=== PATIENT | male | born 1950 | race Caucasian/White ===

== ENCOUNTER 2018-08-31 16:10 | Inpatient (IN) ==
[2018-08-31] MEDS ORDERED: CARDIZEM IV ONE ×2 (16:25→19:07)
[2018-08-31 16:40] LABS: BASO# 0.01 X1000 (0.0-0.2); HEMATOCRIT 44.5 % (42.0-52.0); HEMOGLOBIN 15.8 g/dL (14.0-18.0); IMM GRAN# 0.08 X1000 (0.0-0.04); IMM GRAN% 0.4 % (0.0-0.5); LYMPH# 0.74 X1000 (1.2-3.4); LYMPH% 3.3 % (20.5-51.1); MCH 33.3 PG (27-31); MCHC 35.5 g/dL (33-37); MCV 93.9 FL (81-99); MONO# 2.14 X1000 (0.11-0.59); MONO% 9.7 % (1.7-9.3); MPV 9.5 FL (7.4-10.4); NEUT# 19.15 X1000 (1.4-6.5); NEUT% 86.6 % (42.2-75.2); PLT 189 X1000 (130-400); RBC 4.74 XMIL (4.7-6.1); RDW 12.3 % (11.5-14.5); WBC 22.12 X1000 (4.8-10.8)
[2018-08-31 16:55] LABS: AGAP 18; ALBUMIN 3.9 g/dL (3.5-5.0); ALKALINE PHOSPHATASE 78 U/L (32-122); BUN 11 mg/dL (8-22); CALCIUM 8.5 mg/dL (8.8-10.2); CHLORIDE 97 mmol/L (98-107); COSMO 276; ESTIMATED GFR > 60; GLUCOSE 284 mg/dL (70-104); GOT 9 U/L (10-34); GPT 16 U/L (10-44); POTASSIUM 3.6 mmol/L (3.5-5.1); SODIUM 133 mmol/L (136-145); TCO2 18 mmol/L (25-35); TOTAL PROTEIN 7.1 g/dL (6.3-8.3)
[2018-08-31] MEDS ORDERED: CARDIZEM ONE (18:55)
[2018-08-31] MEDS: CARDIZEM PO ONE ×2 (18:56→19:00)
[2018-08-31] MEDS ORDERED: ROCEPHIN IV ONE (18:58)
[2018-08-31] MEDS ORDERED: NS 1,000 ML IV ONE ×4 (18:58→23:33)
[2018-08-31] MEDS ORDERED: CARDIZEM 125 MG/D5W 125 MG/125 ML IVPB IV SCH (19:00)
[2018-08-31] MEDS ORDERED: NS 50 ML ONE (19:15)
--- NOTE | 2018-08-31 19:15 | Diag Imaging Result Doc PS360 ---
CHEST-1 VIEW - 08/31/2018 INDICATION: N/V/D palpitation COMPARISON: None FINDINGS: The lungs are normally expanded and clear. Heart size and mediastinal contours are normal. No pneumothorax or pleural effusion. IMPRESSION: Negative exam. Electronically signed by Lloyd Matamoros 08/31/2018 7:13 PM
[2018-08-31 19:27] LABS: INR 1.17; PROTIME 15.5 Seconds (11.0-16.0)
[2018-08-31] MEDS ORDERED: ROCEPHIN 1 GM in NS 50 ML IV ONE (19:27)
[2018-08-31 19:28] LABS: PTT 32.4 Seconds (22.3-41.8)
[2018-08-31 19:43] LABS: BILIRUBIN URINE NEGATIVE (NEGATIVE); BLOOD URINE 4+ (NEGATIVE); CLARITY VERY CLOUDY (CLEAR); COLOR YELLOW; KETONE URINE 2+(Moderate) mg/dL (NEGATIVE); LEUKOCYTES URINE 2+ (NEGATIVE); NITRITE URINE NEGATIVE (NEGATIVE); PROTEIN URINE 2+(100 mg/dL) mg/dL (NEGATIVE); UROBILINOGEN URINE NORMAL
[2018-08-31 19:54] LABS: URINE SOURCE CLEAN CATCH
[2018-08-31 19:59] LABS: URINE BACTERIA 2+ /HFP; URINE CAST NONE SEEN /LPF; URINE CRYSTAL NONE SEEN /HPF; URINE EPITHELIAL CELLS <10 /HPF (<10); URINE RBC <10 /HPF (<10); URINE SMALL ROUND CELLS TRANSITIONAL PRESENT; URINE WBC 20-40 /HPF (<10); URINE YEAST NONE SEEN /HPF
[2018-08-31] MEDS ORDERED: NS 1,000 ML ONE (22:11)
[2018-08-31] MEDS ORDERED: LOVENOX 1 MG/KG SUBQ ONE (22:34)
[2018-08-31] MEDS ORDERED: LOVENOX ONE (22:41)
[2018-08-31] MEDS ORDERED: ZOFRAN IV PRN (23:33)
[2018-08-31] MEDS ORDERED: CARDIZEM 125/NS 125 MG/125 ML IVPB IV SCH (23:33)
[2018-09-01] MEDS ORDERED: NS 1,000 ML IV ONE (04:21)
[2018-09-01] MEDS ORDERED: VANCOMYCIN 1 GM/NS 1 GM/250 ML IVPB IV ONE (04:21)
[2018-09-01] MEDS ORDERED: DESITIN OINTMENT TOP ONE (04:52)
[2018-09-01] MEDS ORDERED: ROCEPHIN 1 GM in NS 50 ML IV SCH (07:30)
--- NOTE | 2018-09-01 07:53 | ED EKG INTERP ---
This chart was entered by Tawana Sahni Scribe, acting as scribe for Solange Croft MD. EKG Interpretation - EKG Time of EKG reading by physician:: 16:19 EKG Read and Signed by:: Solange Croft EKG Interpretation (*Must complete 3 of following elements*): Abnormal (st depression, consider subendocardial injury non specific t wave abnormality) Rate: 148 Rhythm: afib with RVR [place]: normal QRS: normal ST Wave: depressed, non-specific ST changes Attestation - Physician/ SHIRLEY Attestation Patient care was provided by Advanced Practice Provider:: No The physician spent face to face time with patient:: Yes Advanced Practice Provider documentation review:: Supervising physician onsite and consulted in the evaluation and care of this patient. The physician did have a face to face encounter with the patient. This chart was documented by the indicated scribe, (Tawana Sahni Scribe) and accurately reflects the services I performed and decisions made by me, Solange Croft MD, as attested by the provider's signature.
--- NOTE | 2018-09-01 07:53 | PROVIDER DOCUMENTATION ---
This chart was entered by Cherelle Gresham Scribe, acting as scribe for Solange Croft MD. HPI-Abdominal Pain/GI Problem - General Source: patient - History of Present Illness-ABD Nature of Presenting Problems: 68 yom presents to ED cc N/V/D for 3 days and palpitations that started today. Pt denies chest pain, SOB, abdominal pain or any urinary symptoms.patient repor venkatesh nausea, vomting and diarrhea. but no abdominal pain was reported. Onset/Duration: reports: 3 days ago Timing: reports: still present, changing over time Activities at Onset: reports: none Exposure to sick contacts?: No Modifying Factors: improves with: nothing <Solange Croft - Last Filed: 08/31/18 19:01> <Vernon Stokes - Last Filed: 08/31/18 22:38> - General Chief Complaint: N/V/D Stated Complaint: N/V/D Time Seen by Provider: 08/31/18 16:14 Allergies/Adverse Reactions: Patient Allergies Allergy/AdvReac Type Severity Reaction Status Date / Time No Known Allergies Allergy Verified 08/31/18 19:46 Home Medications: Home Medication List Medication Instructions Recorded Confirmed Last Taken Type Metformin [Glucophage] 500 mg PO DAILY 08/31/18 08/31/18 Unknown History Metoprolol Tartrate 25 mg PO BID 08/31/18 08/31/18 Unknown History Omeprazole 40 mg PO DAILY 08/31/18 08/31/18 Unknown History Tamsulosin [Flomax] 0.4 mg PO DAILY 08/31/18 08/31/18 Unknown History Review of Systems - Adult - REVIEW OF SYSTEMS - ADULT Constitutional: reports: see HPI. denies: chills, fever, fatique Eyes: reports: no symptoms reported Ears, Nose, Mouth & Throat: reports: no symptoms reported Cardiovascular: reports: see HPI, palpitations. denies: chest pain, syncope Respiratory: reports: see HPI. denies: shortness of breath Gastrointestinal: reports: see HPI, diarrhea, nausea, vomiting. denies: abdominal pain, constipation Genitourinary: reports: see HPI. denies: dysuria, hematuria, urgency Musculoskeletal: reports: no symptoms reported Integumentary: reports: no symptoms reported Neurological: reports: no symptoms reported Psychiatric: reports: no symptoms reported Endocrine: reports: no symptoms reported Hematologic/Lymphatic: reports: no symptoms reported Allergic/Immunologic: reports: no symptoms reported All Other Systems: Reviewed and Negative <Solange Croft - Last Filed: 08/31/18 19:01> Past History - Adult - PAST MEDICAL HISTORY-ADULT Review of Records: reports: Nursing Assessment Review, Medications Reviewed, Social history reviewed & non-contributory. Major Childhood Illnesses: reports: denies history Cardiovascular: reports: denies history Respiratory: reports: denies history Gastrointestinal: reports: denies history Obstetrical/Gynecological: reports: denies history Genitourinary: reports: denies history Musculoskeletal: reports: denies history Neurological: reports: denies history Endocrine/Immune: reports: denies history Other Conditions: reports: denies history - IMMUNIZATION STATUS Childhood Immunizations: See Nurse Assessment Flu Vaccine: See Nurse Assessment - FAMILY HISTORY Family History: reviewed, not pertinent <Solange Croft - Last Filed: 08/31/18 19:01> Physical Exam-General - PHYSICAL EXAM-ADULT Initial Vital Signs Reviewed: Yes - CONSTITUTIONAL General Appearance: appears well, alert. negative: anxious, combative - EYES Eyes: PERRL/EOMI, pink conjunctivae. negative: photophobia - HEAD, EARS, NOSE, MOUTH & THROAT HENMT: normal ENT inspection. negative: angioedema - NECK Neck: non-tender, full range of motion, supple, normal inspection. negative: Brudzinski's sign, carotid bruit - RESPIRATORY Respiratory: chest non-tender, lungs clear, normal breath sounds, no pleuratic chest pain, no respiratory distress, no accessory muscle use. negative: crackles, rales, rhonchi - CARDIOVASCULAR Cardiovascular: normal peripheral pulses, no edema, no gallop, no JVD, no murmur , tachycardia, irregularly irregular. negative: regular rate, rhythm, bradycardia - GASTROINTESTINAL (ABDOMEN) Abdominal Exam: normal bowel sounds, non tender, soft, no organomegaly. negative: rigid, rebound, tenderness - LYMPHATIC Lymphatic: no adenopathy. negative: striations - MUSCULOSKELETAL Back Exam: normal inspection. negative: swelling Extremity: normal range of motion, normal inspection. negative: deformity - SKIN Integumentary: normal color, warm/dry. negative: diaphoresis, jaundice - NEUROLOGIC Neurologic: settlement processor II-XII nml as tested, grossly normal, no motor/sensory deficits. negative: facial droop, focal weakness - PSYCHIATRIC Psych/Mental Status: normal mood/affect, normal thought content, normal thought process, oriented x 3. negative: anxious <Solange Croft - Last Filed: 08/31/18 19:01> Progress - PLAN OF CARE/RESULTS Progress/Plan/Lab Results: Vital Signs - 8 hr 08/31/18 16:13 08/31/18 17:09 Temperature 99.1 F 98.0 F Pulse Rate 150 H 105 H Respiratory Rate 17 20 Blood Pressure 119/099 101/076 O2 Sat by Pulse Oximetry 97 96 Laboratory Results - last 24 hr 08/31/18 08/31/18 08/31/18 16:25 16:25 16:25 WBC 22.12 H RBC 4.74 Hgb 15.8 Hct 44.5 MCV 93.9 MCH 33.3 H MCHC 35.5 RDW Std Deviation 12.3 Plt Count 189 MPV 9.5 Immature Gran % (Auto) 0.4 Neut % (Auto) 86.6 H Lymph % (Auto) 3.3 L [place] % (Auto) 9.7 H Eos % (Auto) 0.0 Baso % (Auto) 0.0 Immature Gran # (Auto) 0.08 H Neut # (Auto) 19.15 H Lymph # (Auto) 0.74 L [place] # (Auto) 2.14 H Eos # (Auto) 0.00 Baso # (Auto) 0.01 Sodium Potassium Chloride Carbon Dioxide Anion Gap BUN Creatinine Estimated GFR/1.73 m2 BUN/Creatinine Ratio Glucose Calculated Osmolality Calcium Total Bilirubin AST ALT Alkaline Phosphatase Creatine Kinase 33 Troponin T < 0.010 Total Protein Albumin Globulin Albumin/Globulin Ratio 08/31/18 16:25 WBC RBC Hgb Hct MCV MCH MCHC RDW Std Deviation Plt Count MPV Immature Gran % (Auto) Neut % (Auto) Lymph % (Auto) [place] % (Auto) Eos % (Auto) Baso % (Auto) Immature Gran # (Auto) Neut # (Auto) Lymph # (Auto) [place] # (Auto) Eos # (Auto) Baso # (Auto) Sodium 133 L Potassium 3.6 Chloride 97 L Carbon Dioxide 18 L Anion Gap 18 BUN 11 Creatinine 1.0 Estimated GFR/1.73 m2 > 60 BUN/Creatinine Ratio 11 Glucose 284 H Calculated Osmolality 276 Calcium 8.5 L Total Bilirubin 2.20 H AST 9 L ALT 16 Alkaline Phosphatase 78 Creatine Kinase Troponin T Total Protein 7.1 Albumin 3.9 Globulin 3.0 Albumin/Globulin Ratio 1.0 Orders Category Date Time Status Cardiac Monitoring DIRECTED Care 08/31/18 17:40 Active IV Insertion ORDERED Care 08/31/18 17:40 Active Notify MD of + Sepsis Screen NOW Care 08/31/18 17:40 Active Notify Physician As Ordered Care 08/31/18 17:40 Active CHEST-1 VIEW [RAD] Stat Exams 08/31/18 17:40 Ordered BLOOD CULTURE [BLDCUL] Stat Lab 08/31/18 17:40 Uncollected CBC WITH DIFF [HEME] Stat Lab 08/31/18 16:25 Completed CK PROFILE [SP CHEM] Stat Lab 08/31/18 16:25 Completed CK PROFILE [SP CHEM] Stat Lab 08/31/18 17:40 Uncollected COMPREHENSIVE METABOLIC PANEL [CHEM] Stat Lab 08/31/18 16:25 Completed LACTATE, PLASMA [CHEM] Q3H Lab 08/31/18 17:45 Uncollected LACTATE, PLASMA [CHEM] Q3H Lab 08/31/18 20:45 Uncollected LACTATE, PLASMA [CHEM] Q3H Lab 08/31/18 23:45 Uncollected PROTIME WITH INR [COAG] Stat Lab 08/31/18 17:40 Uncollected PTT [COAG] Stat Lab 08/31/18 17:40 Uncollected TROPONIN T Stat Lab 08/31/18 16:[address] W/POSS RFLX CULT [URINALYSIS] Stat Lab 08/31/18 17:40 Uncollected Diltiazem [Cardizem] Med 08/31/18 16:25 Discontinued 20 mg IV NOW ONE Oxygen Device Stat Oth 08/31/18 17:40 Active Result Diagrams: 08/31/18 16:25 08/31/18 16:25 <Solange Croft - Last Filed: 08/31/18 19:01> - PLAN OF CARE/RESULTS Progress/Plan/Lab Results: Vital Signs - 8 hr 08/31/18 16:13 08/31/18 17:09 08/31/18 20:37 Temperature 99.1 F 98.0 F 98.6 F Pulse Rate 150 H 105 H 104 H Respiratory Rate 17 20 25 H Blood Pressure 119/099 101/076 130/79 O2 Sat by Pulse Oximetry 97 96 97 08/31/18 20:59 08/31/18 21:42 Temperature 99.9 F H Pulse Rate 110 H 102 H Respiratory Rate 20 26 H Blood Pressure 120/68 131/69 O2 Sat by Pulse Oximetry 95 96 Laboratory Results - last 24 hr 08/31/18 08/31/18 08/31/18 16:25 16:25 16:25 WBC 22.12 H RBC 4.74 Hgb 15.8 Hct 44.5 MCV 93.9 MCH 33.3 H MCHC 35.5 RDW Std Deviation 12.3 Plt Count 189 MPV 9.5 Immature Gran % (Auto) 0.4 Neut % (Auto) 86.6 H Lymph % (Auto) 3.3 L [place] % (Auto) 9.7 H Eos % (Auto) 0.0 Baso % (Auto) 0.0 Immature Gran # (Auto) 0.08 H Neut # (Auto) 19.15 H Lymph # (Auto) 0.74 L [place] # (Auto) 2.14 H Eos # (Auto) 0.00 Baso # (Auto) 0.01 PT INR PTT ([place] FS) Sodium Potassium Chloride Carbon Dioxide Anion Gap BUN Creatinine Estimated GFR/1.73 m2 BUN/Creatinine Ratio Glucose POC Glucose Calculated Osmolality Calcium Total Bilirubin AST ALT Alkaline Phosphatase Creatine Kinase 33 Troponin T < 0.010 Total Protein Albumin Globulin Albumin/Globulin Ratio Plasma Lactate Urine Source Urine Color Urine Clarity Urine pH Ur Specific [place] Urine Protein Urine Ketones Urine Blood Urine Nitrite Urine Bilirubin Urine Urobilinogen Urine Microscopic RBC Urine WBC Urine Microscopic WBC Ur Epithelial Cells Urine Crystals Small Round Cells Urine Bacteria Urine Casts Urine Yeast Urine Glucose 08/31/18 08/31/18 08/31/18 16:25 18:46 18:46 WBC RBC Hgb Hct MCV MCH MCHC RDW Std Deviation Plt Count MPV Immature Gran % (Auto) Neut % (Auto) Lymph % (Auto) [place] % (Auto) Eos % (Auto) Baso % (Auto) Immature Gran # (Auto) Neut # (Auto) Lymph # (Auto) [place] # (Auto) Eos # (Auto) Baso # (Auto) PT 15.5 INR 1.17 PTT ([place] FS) 32.4 Sodium 133 L Potassium 3.6 Chloride 97 L Carbon Dioxide 18 L Anion Gap 18 BUN 11 Creatinine 1.0 Estimated GFR/1.73 m2 > 60 BUN/Creatinine Ratio 11 Glucose 284 H POC Glucose Calculated Osmolality 276 Calcium 8.5 L Total Bilirubin 2.20 H AST 9 L ALT 16 Alkaline Phosphatase 78 Creatine Kinase 38 Troponin T Total Protein 7.1 Albumin 3.9 Globulin 3.0 Albumin/Globulin Ratio 1.0 Plasma Lactate Urine Source Urine Color Urine Clarity Urine pH Ur Specific [place] Urine Protein Urine Ketones Urine Blood Urine Nitrite Urine Bilirubin Urine Urobilinogen Urine Microscopic RBC Urine WBC Urine Microscopic WBC Ur Epithelial Cells Urine Crystals Small Round Cells Urine Bacteria Urine Casts Urine Yeast Urine Glucose 08/31/18 08/31/18 08/31/18 18:46 19:18 20:16 WBC RBC Hgb Hct MCV MCH MCHC RDW Std Deviation Plt Count MPV Immature Gran % (Auto) Neut % (Auto) Lymph % (Auto) [place] % (Auto) Eos % (Auto) Baso % (Auto) Immature Gran # (Auto) Neut # (Auto) Lymph # (Auto) [place] # (Auto) Eos # (Auto) Baso # (Auto) PT INR PTT ([place] FS) Sodium Potassium Chloride Carbon Dioxide Anion Gap BUN Creatinine Estimated GFR/1.73 m2 BUN/Creatinine Ratio Glucose POC Glucose 246 H Calculated Osmolality Calcium Total Bilirubin AST ALT Alkaline Phosphatase Creatine Kinase Troponin T Total Protein Albumin Globulin Albumin/Globulin Ratio Plasma Lactate 2.3 H Urine Source CLEAN CATCH Urine Color YELLOW Urine Clarity VERY CLOUDY A Urine pH 5.0 Ur Specific [place] 1.020 Urine Protein 2+(100 mg/dL) A Urine Ketones 2+(Moderate) A Urine Blood 4+ Urine Nitrite NEGATIVE Urine Bilirubin NEGATIVE Urine Urobilinogen NORMAL Urine Microscopic RBC <10 Urine WBC 2+ A Urine Microscopic WBC 20-40 A Ur Epithelial Cells <10 Urine Crystals NONE SEEN Small Round Cells TRANSITIONAL PRESENT Urine Bacteria 2+ Urine Casts NONE SEEN Urine Yeast NONE SEEN Urine Glucose 3+(500 mg/dL) A 08/31/18 21:23 WBC RBC Hgb Hct MCV MCH MCHC RDW Std Deviation Plt Count MPV Immature Gran % (Auto) Neut % (Auto) Lymph % (Auto) [place] % (Auto) Eos % (Auto) Baso % (Auto) Immature Gran # (Auto) Neut # (Auto) Lymph # (Auto) [place] # (Auto) Eos # (Auto) Baso # (Auto) PT INR PTT ([place] FS) Sodium Potassium Chloride Carbon Dioxide Anion Gap BUN Creatinine Estimated GFR/1.73 m2 BUN/Creatinine Ratio Glucose POC Glucose Calculated Osmolality Calcium Total Bilirubin AST ALT Alkaline Phosphatase Creatine Kinase Troponin T Total Protein Albumin Globulin Albumin/Globulin Ratio Plasma Lactate 2.7 H Urine Source Urine Color Urine Clarity Urine pH Ur Specific [place] Urine Protein Urine Ketones Urine Blood Urine Nitrite Urine Bilirubin Urine Urobilinogen Urine Microscopic RBC Urine WBC Urine Microscopic WBC Ur Epithelial Cells Urine Crystals Small Round Cells Urine Bacteria Urine Casts Urine Yeast Urine Glucose Orders Category Date Time Status Cardiac Monitoring DIRECTED Care 08/31/18 17:40 Active IV Insertion ORDERED Care 08/31/18 17:40 Active Notify MD of + Sepsis Screen NOW Care 08/31/18 17:40 Active Notify MD of + Sepsis Screen NOW Care 08/31/18 20:46 Completed Notify Physician As Ordered Care 08/31/18 17:40 Active CHEST-1 VIEW [RAD] Stat Exams 08/31/18 17:40 Completed BLOOD CULTURE [BLDCUL] Stat Lab 08/31/18 18:46 Received CBC WITH DIFF [HEME] Stat Lab 08/31/18 16:25 Completed CK PROFILE [SP CHEM] Stat Lab 08/31/18 16:25 Completed CK PROFILE [SP CHEM] Stat Lab 08/31/18 18:46 Completed COMPREHENSIVE METABOLIC PANEL [CHEM] Stat Lab 08/31/18 16:25 Completed LACTATE, PLASMA [CHEM] Lab 08/31/18 21:23 Completed LACTATE, PLASMA [CHEM] Q3H Lab 08/31/18 18:46 Completed PROTIME WITH INR [COAG] Stat Lab 08/31/18 18:46 Completed PTT [COAG] Stat Lab 08/31/18 18:46 Completed TROPONIN T Stat Lab 08/31/18 16:[address] W/POSS RFLX CULT [URINALYSIS] Stat Lab 08/31/18 19:18 Completed URINE CULTURE [RM] Routine Lab 08/31/18 19:59 Received 0.9% Sodium Chloride Inj [Ns] 1,000 ml Med 08/31/18 22:11 Discontinued .ROUTE As directed 0.9% Sodium Chloride Inj [Ns] 1,000 ml Med 08/31/18 18:58 Discontinued IV 999 mls/hr 0.9% Sodium Chloride Inj [Ns] 1,000 ml Med 08/31/18 22:16 Active IV 999 mls/hr 0.9% Sodium Chloride Inj [Ns] 50 ml Med 08/31/18 19:15 Discontinued .ROUTE As directed CefTRIAXONE [Rocephin] Med 08/31/18 18:58 Discontinued 1 gm IV NOW ONE CefTRIAXONE [Rocephin] 1 gm Med 08/31/18 19:27 Discontinued 0.9% Sodium Chloride Inj [Ns] 50 ml IV NOW Diltiazem 125 mg/D5w Med 08/31/18 19:00 Active 125 mg in 125 ml IV As Directed mls/hr Diltiazem [Cardizem] Med 08/31/18 16:25 Discontinued 20 mg IV NOW ONE Diltiazem [Cardizem] Med 08/31/18 19:07 Discontinued 20 mg IV NOW ONE Diltiazem [Cardizem] Med 08/31/18 18:56 Discontinued 20 mg PO NOW ONE Diltiazem [Cardizem] Med 08/31/18 18:55 Discontinued 25 mg .ROUTE .STK-MED ONE Oxygen Device Stat Oth 08/31/18 17:40 Active Result Diagrams: 08/31/18 16:25 08/31/18 16:25 - REASSESSMENT Reassessment #1 Time Reassessed: 22:29 (assumed care @ S/O. Pt seen and examined. He has had N/V/D for 3 days. Has not noticed any palpitations. On exam- ireg irereg tachy cardia, Lungs are clear. Abd is soft, NT. Says was told 20 yrs ago had irreg heartbeat, was placed on Toprol) - CONSULTS/PCP/HOSPITALIST Notification #1 *Consult/PCP/Hospitalist*: Anil Time Discussed: 22:37 Consult Disposition: Admit <Vernon Stokes - Last Filed: 08/31/18 22:38> Departure - Departure Date of Disposition Decision: 08/31/18 Time of Disposition Decision: 19:01 Certified Medical Emergency: Emergent - Critical Care Note This patient required my direct & personal management of CC.: No <Solange Croft - Last Filed: 08/31/18 19:01> - Departure Certified Medical Emergency: Emergent - Critical Care Note This patient required my direct & personal management of CC.: Yes Total Time (mins): 35 Critical Care Statement: This patient required my direct personal management to treat or rule out processes, the absence of which, could potentiallly result in sudden, clinically significant life or limb threatening deterioration. <Vernon Stokes - Last Filed: 08/31/18 22:38> - Departure DIAGNOSIS: Atrial fibrillation with RVR, Gastroenteritis Urinary tract infection Qualifiers: Urinary tract infection type: acute cystitis Hematuria presence: with hematuria Qualified Code(s): N30.01 - Acute cystitis with hematuria Disposition: ADMITTED INPATIENT 09 Condition: Stable Referrals and Follow-Ups: None,PCP [Primary Care Provider] - Attestation - Physician/ SHIRLEY Attestation Patient care was provided by Advanced Practice Provider:: No The physician spent face to face time with patient:: Yes Advanced Practice Provider documentation review:: Supervising physician onsite and consulted in the evaluation and care of this patient. The physician did have a face to face encounter with the patient. <Solange Croft - Last Filed: 08/31/18 19:01> - Physician/ SHIRLEY Attestation Patient care was provided by Advanced Practice Provider:: No The physician spent face to face time with patient:: Yes Advanced Practice Provider documentation review:: Supervising physician onsite and consulted in the evaluation and care of this patient. The physician did have a face to face encounter with the patient. <Vernon Stokes - Last Filed: 08/31/18 22:38> This chart was documented by the indicated scribe, (Cherelle Gresham Scribe) and accurately reflects the services I performed and decisions made by me, Solange Croft MD, as attested by the provider's signature.
--- NOTE | 2018-09-01 08:45 | EKG Report ---
Test Performed on : 08/31/2018 4:19:33 PM Test Reason : ER Blood Pressure : / mmHG Vent. Rate : 148 BPM Atrial Rate : 220 BPM P-R Int : 000 ms QRS Dur : 078 ms QT Int : 300 ms P-R-T Axes : 000 -13 -43 degrees QTc Int : 471 ms Atrial fibrillation. with rapid ventricular response. ST depression, consider subendocardial injury Nonspecific T wave abnormality Abnormal ECG No previous ECGs available Unconfirmed Result
[2018-09-01] MEDS ORDERED: LOPRESSOR PO SCH (09:00)
--- NOTE | 2018-09-01 09:09 | HISTORY AND PHYSICAL ---
PRIMARY CARE PHYSICIAN: None currently. CHIEF COMPLAINT: Nausea, vomiting, and diarrhea for 3 days and palpitations that began yesterday. HISTORY OF PRESENTING ILLNESS: This is a 68-year-old male who presented to [facility] ER with complaints of nausea, vomiting, and diarrhea for the last 3 days that progressively worsened and then began having some palpitations yesterday. He states the palpitations have been on and off for quite a while, but that he has ignored them. When he arrived to the emergency room, he had a pulse of 150. We obtained an EKG that showed atrial fibrillation with RVR at 1:48. He was given Cardizem 20 mg IV x1, Lovenox 1 mg/kg subcutaneously x1. He had a white blood cell count of 22.12. His plasma lactate was 2.3. He received 3 L of normal saline. He was given a vancomycin 1 gram IV x1. He states he has not had any further vomiting since arriving. He still feels nauseous and has had multiple diarrhea episodes since arriving to the emergency room. He has been placed on a Cardizem drip and will be admitted to the intensive care unit for further evaluation and treatment, but currently is holding in the emergency room due to non bed availability. PAST MEDICAL HISTORY: Diabetes type 2. PAST SURGICAL HISTORY: Kidney stones. FAMILY HISTORY: Reviewed and noncontributory. SOCIAL HISTORY: He currently lives with family. Denies any tobacco, alcohol or illicit drug use. ALLERGIES: He has no known drug allergies. HOME MEDICATIONS: He takes Glucophage 500 mg p.o. daily and that will be held, metoprolol 25 mg p.o. b.i.d., omeprazole 40 mg p.o. daily, and Flomax 0.4 mg p.o. daily. LABORATORY DATA: Showed a white blood cell count of 22.12, hemoglobin 15.8, hematocrit 44.5, platelets 189,000. PT and INR of 15.5 and 1.17. Sodium 133, potassium 3.6, chloride 97, CO2 18, BUN of 11, creatinine 1, glucose 284, total bilirubin of 2.2 AST was 9, ALT 16. Cardiac enzyme was negative, and initial plasma lactate was 2.3 and 3 hours later it went up to 2.7 and then 6 hours after that it was back to normal at 1.7. Urinalysis was negative except for 2+ bacteria and showed negative nitrites, 2+ white blood cells, 2+ bacteria. Chest x-ray was a negative exam. EKG showed atrial fibrillation with RVR at 148. REVIEW OF SYSTEMS: He denied any fever, had had some chills. Denied body aches. Denied chest pain, but was positive for some intermittent palpitations. Denied cough. Was positive for shortness of breath. Denied abdominal pain. Was positive for nausea, vomiting, diarrhea, and denied any burning or hurting with urination. PHYSICAL EXAMINATION: VITAL SIGNS: On arrival, he had a temperature of 99.1 degrees, pulse 150, respirations 17, blood pressure 119/99, saturating 97% on room air, and currently his heart rate is down to 98, but remains in atrial fibrillation. GENERAL: This is a 68-year-old male who is lying in the bed and answers questions appropriately. HEENT: Normocephalic, atraumatic. Normal ENT inspection. Oropharynx and nares are clear. Eyes: Pupils are equal, round, reactive to light and accommodation. Extraocular movements are intact. NECK: Normal inspection, normal range of motion. LUNGS: Clear to auscultation bilaterally with equal lung expansion and chest wall movement. HEART: With irregular rate and rhythm, but no murmurs, rubs, or gallops noted. ABDOMEN: Soft, nontender. Bowel sounds are hyperactive x4. MUSCULOSKELETAL: He has 5/5 strength x4 extremities. NEUROLOGICAL: The cranial nerves 2 through 12 appear grossly intact. ASSESSMENT: 1. New onset of atrial fibrillation with rapid ventricular response. 2. Nausea, vomiting, and diarrhea. Rule out gastroenteritis versus any other abdominal infection. 3. Leukocytosis. 4. Diabetes type 2. 5. Presumed urinary tract infection. PLAN: He is being admitted to the intensive care unit at [place] on a Cardizem drip. We are going to consult cardiology. We are obtaining a CT of the abdomen and pelvis with p.o. and IV contrast now to rule out any infection versus gastroenteritis. Give him Lovenox 1 mg/kg subcutaneously every 12 hours, Rocephin 1 gram IV every 12 hours, Zofran 8 mg IV every 6 hours p.r.n. Urine culture and blood cultures are pending. We will recheck a CBC and BMP. Further orders after being seen by attending and sap bw consultant. We will add patterned blood sugars with sliding scale insulin. Dictated by SILVINA Alvarado for Kyle Yepez MD Addendum: Patient seen and examined by myself. Agree with SILVINA note. It reflects my assessment and plan. Patient is admitted to hospital for atrial fibrillation with RVR. Patient reported have had that condition many years ago and he was on Toprol XL for years. Cardizem drip has been started in the ER. Also we found out he has a UTI and gram negative bacteriemia so will start Ertapenem 1 gr IV daily while we wait for results of blood culture. Will monitor patient closely in ICU. cc: SILVINA Alvarado MD [facility]
--- NOTE | 2018-09-01 10:18 | Diag Imaging Result Doc PS360 ---
EXAM: CT ABD/PELVIS W/PO AND IV CON - 09/01/2018 HISTORY: N/V/D,Leukocytosis TECHNIQUE: CT abdomen/pelvis with oral and intravenous contrast COMPARISON: None. FINDINGS: There are tiny bilateral pleural effusions, and there is mild atelectasis or infiltrate at the bilateral posterior lung bases. There is an 8 x 5 mm stone in the proximal to mid right ureter. There is substantial right hydronephrosis, with some perinephric edema. There is heterogeneous enhancement of the lower right kidney which is suspicious for nephritis or pyelonephritis. There is a 7 mm nonobstructing stone in mid right kidney. There is a 2.1 x 1.5 cm oval exophytic lesion arising at the posterior lower right kidney. This has relatively homogeneous appearance but is of soft tissue density. The left kidney is unremarkable except for tiny cysts and mild cortical scarring. The prostate is somewhat prominent in size with mass effect on the base the urinary bladder. The urinary bladder welsh appear mildly thickened diffusely. These findings could be long-standing, the possibility of prostatitis in the urinary bladder cystitis cannot be excluded. There are no substantial abnormalities of the liver, adrenal glands, or pancreas identified. Spleen appears upper normal in size. There are no calcified gallstones or pericholecystic inflammation identified. There is no evidence of bowel obstruction. The appendix has oral contrast in the lumen and shows no evidence of inflammation. There is no free air or gas containing abscess identified. There are some lumbar spine degenerative changes noted which are most prominent at L4-5, where there is apparent associated spinal stenosis. IMPRESSION: 8 x 5 mm stone in proximal to mid right ureter, with associated substantial right hydronephrosis. Heterogeneous enhancement of lower right kidney, which suggests nephritis or pyelonephritis. 7 mm nonobstructing stone in right kidney. 2.1 x 1.5 cm oval exophytic solid appearing lesion arising at posterior lower right kidney. This is relatively homogeneous but malignancy cannot be excluded. Enlarged prostate. Thickened urinary bladder welsh. These findings could be long-standing, but prostatitis and/or urinary bladder cystitis cannot be excluded. Lumbar spine degenerative changes noted which are most prominent at L4-5, where there is apparent associated spinal stenosis. This exam was performed using automated exposure control, adjustment of mA or kV according to patient size, and/or use of iterative reconstruction technique. Electronically signed by Cedrick Hayes 09/01/2018 10:16 AM
[2018-09-01] MEDS: FLOMAX PO SCH (10:23)
[2018-09-01] MEDS: LOVENOX SUBQ SCH ×2 (10:24→22:44)
[2018-09-01] MEDS: HUMALOG (PARKWAY) SUBQ SCH ×3 (11:30→22:48)
[2018-09-01] MEDS ORDERED: PRILOSEC ONE (12:05)
[2018-09-01] MEDS: PRILOSEC PO SCH (12:13)
[2018-09-01] MEDS ORDERED: INVANZ 1 GM/NS 1 GM/50 ML IVPB IV SCH (13:00)
--- NOTE | 2018-09-01 13:56 | ECHO REPORT ---
ORDER DATE: 09/01/2018 INTERPRETING PHYSICIAN: Dr. Kiet Chowdhury. ECHOCARDIOGRAPHIC MEASUREMENTS: 1. Interventricular septum 1.3. 2. Left ventricular posterior wall 1.3. 3. Diastolic diameter 4.3. 4. Left atrium 4.1. 5. Aorta 2.5. SUMMARY OF THE 2-DIMENSIONAL IMAGIN. Aortic valve leaflets are trileaflet. 2. Mitral valve was normal. 3. Tricuspid valve was normal. 4. Pulmonic valve was normal. 5. There is left atrial enlargement. 6. Peak velocity across the aortic valve less than 2 m/sec. There is no aortic stenosis. There is mild aortic regurgitation. 7. There is mild tricuspid regurgitation. Peak velocity across the tricuspid valve was 2.5 m/sec. Pulmonary artery systolic pressure of 35 mmHg. 8. Normal left ventricular cavity size. Estimated ejection fraction of 65%. There is mild left ventricular hypertrophy. 9. There is no pericardial effusion or obvious intracardiac mass or thrombus. cc: MD Lilli Laura CRNP
[2018-09-01] MEDS ORDERED: CARDIZEM PO SCH (14:00)
[2018-09-01] MEDS: INVANZ 1 GM/NS 1 GM/50 ML IVPB IV SCH (14:08)
--- NOTE | 2018-09-01 19:21 | CARDIOLOGY CONSULTATION ---
DATE: 09/01/2018 CHIEF COMPLAINT ON PRESENTATION: Nausea, vomiting and diarrhea. HISTORY OF PRESENT ILLNESS: Mr. Hall is a 68-year-old male with a history of diabetes who does not have a primary care physician. He presented for 4 to 5 days of nausea, vomiting and diarrhea. He was found to have a significant urinary tract infection/pyelonephritis as well as nephrolithiasis. He was admitted for further evaluation and was noted to be in atrial fibrillation and initially started on Cardizem drip. He denies any palpitations, chest pain or orthopnea. PAST MEDICAL HISTORY: Significant for type 2 diabetes as well as nephrolithiasis. SOCIAL HISTORY: . No tobacco or alcohol or illicit drug use. FAMILY HISTORY: Significant for hypertension. REVIEW OF SYSTEMS: A 10-system review of systems is negative except for those things mentioned in HPI. PHYSICAL EXAMINATION: Vital Signs: He is afebrile. His heart rate currently is in the 80s to 90s and appears to be atrial fibrillation. Blood pressure 115/70. General: No acute distress. HEENT: Oropharynx is moist, poor dentition. Eye examination was pink conjunctivae. White sclerae. Neck: Examination shows no obvious thyromegaly or thyroid tenderness. Cardiovascular: He sounds to be in an irregularly irregular rhythm. He has no murmurs. No S3. He has no lower extremity edema. No carotid bruits. Chest: Clear bilaterally. No increased work of breathing. Abdomen: Soft, nontender, nondistended. He has no obvious organomegaly. Skin: Warm and dry throughout without any rashes. Neurological: He is moving all extremities well. He has no lateralizing deficits. PERTINENT DATA: His EKG occurring on the at 14:53 shows rate controlled atrial fibrillation. His EKG occurring on the at 1619 shows rapid atrial fibrillation, rate of 148 beats per minute. His CT scan of his abdomen and pelvis was reviewed demonstrating enlarged prostate, suggestion of hydronephrosis on the right. Nephrolithiasis is noted as well and nephritis/pyelonephritis. He has a 2.1 x 1.5 cm solid-appearing lesion on the lower right kidney suggesting possible malignancy. His lab data shows a white count of 22, hematocrit 44, platelet count of 189,000. His INR is 1.17, sodium is 133, potassium 3.6. His CO2 originally was 18 with an anion gap of 18. His T bilirubin was 2.2. His lactate was 2.7. His cardiac enzymes are negative. His urinalysis was reviewed and was significantly dirty. ASSESSMENT: Mr. Hall is a 68-year-old gentleman who presented with what appears to be sepsis secondary to a urinary source/pyelonephritis. He is also noted to be in atrial fibrillation. PLAN: Currently he is rate controlled. I will stop the diltiazem, increase his metoprolol to 50 b.i.d. He is on weight based Lovenox. He needs to be changed to oral Xarelto or Eliquis at the time of discharge, which I have discussed the risks and benefits, and he agreed to proceed with that plan. His echocardiogram shows a preserved ejection fraction of 65%. His thyroids will be checked in the morning. Please contact us so we can be of further assistance. I have made arrangements for him to follow up with me in 1 month. cc: Ezequiel Matthews MD MTDD
[2018-09-01] MEDS: LOPRESSOR PO SCH (22:44)
[2018-09-02] MEDS: PRILOSEC PO SCH (06:37)
[2018-09-02] MEDS: HUMALOG (PARKWAY) SUBQ SCH ×4 (06:39→21:49)
--- NOTE | 2018-09-02 08:28 | PROGRESS NOTE ---
DATE: 09/02/2018 SUBJECTIVE: Patient reports feeling fine. Denies any sensation of palpitations, chest pressure or chest pain. OBJECTIVE: Vital Signs: Temperature 97.8 degrees, heart rate 100, respiratory rate 18, blood pressure 107/65, and O2 saturation 98% on room air. General: This is a 68-year-old male lying in bed in no acute distress. HEENT: Head is normocephalic, atraumatic. Neck: No JVD noted. No carotid bruits. No lymphadenopathy. No thyromegaly. Cardiovascular: S1, S2 heard. Irregularly irregular, but no murmurs, gallops, or rubs noted. Respiratory: Clear bilaterally to auscultation. No work of breathing or using accessory muscles. Abdomen: Soft and nontender to palpation. Bowel sounds present. No organomegaly. Extremities: No clubbing, cyanosis, or edema. Peripheral pulses present in both legs. Neurological: Patient alert and oriented x3. Moves all 4 extremities. LABORATORY DATA: Still pending. ASSESSMENT AND PLAN: 1. New onset atrial fibrillation with rapid ventricular rate. Heart rate is partially controlled. Considering that he is on metoprolol 50 mg p.o. b.i.d. and that the blood pressures is in the range of high 90s and 100s, I prefer to start small doses of Cardizem. In this case, it is going to be 30 mg of Cardizem p.o. q.6 hours. The Cardizem drip has been stopped, and see how this patient does. Clinically, as we mentioned before he is feeling better. 2. Gram negative bacteremia. Patient has gram-negative rods in the blood. The patient has been started on ertapenem 1 g IV q.24 hours. We do not know exactly what bacteria it is. So far, patient does not have any metal or any prostheses or any pacemaker. At this point, we will continue with the same medication until we know the final sensitivity of those blood cultures, and will go from there. 3. Diabetes mellitus type 2. We will continue with sliding scale insulin. Accu-Chek before meals and also at bedtime. 4. Urinary tract infection. As we mentioned before, urine culture still pending. We will continue with ertapenem. 5. Disposition. We will continue to monitor this patient closely. From a cardiovascular standpoint, I think he is stable. Cardiology has signed off. He recommends heart rate controlled on anticoagulation. At this time, we will continue with Lovenox. He will be discharged with either Xarelto or Eliquis. cc: Kyle Yepez MD
[2018-09-02] MEDS: LOPRESSOR PO SCH ×2 (09:00→21:51)
[2018-09-02] MEDS: FLOMAX PO SCH (09:00)
[2018-09-02 09:21] LABS: BASO# 0.01 X1000 (0.0-0.2); BASO% 0.1 % (0.0-0.8); EOS# 0.01 X1000 (0.0-0.7); EOS% 0.1 % (0.0-10.0); HEMATOCRIT 37.3 % (42.0-52.0); HEMOGLOBIN 12.9 g/dL (14.0-18.0); IMM GRAN# 0.02 X1000 (0.0-0.04); IMM GRAN% 0.2 % (0.0-0.5); LYMPH# 0.67 X1000 (1.2-3.4); LYMPH% 6.5 % (20.5-51.1); MCH 32.7 PG (27-31); MCHC 34.6 g/dL (33-37); MCV 94.7 FL (81-99); MONO# 0.89 X1000 (0.11-0.59); MONO% 8.6 % (1.7-9.3); MPV 10.2 FL (7.4-10.4); NEUT# 8.71 X1000 (1.4-6.5); NEUT% 84.5 % (42.2-75.2); PLT 148 X1000 (130-400); RBC 3.94 XMIL (4.7-6.1); RDW 12.2 % (11.5-14.5); WBC 10.31 X1000 (4.8-10.8)
[2018-09-02 09:22] LABS: POTASSIUM 2.9 mmol/L (3.5-5.1); SODIUM 135 mmol/L (136-145)
[2018-09-02 09:23] LABS: BUN 10 mg/dL (8-22); CHLORIDE 102 mmol/L (98-107); COSMO 273; CREATININE 0.8 mg/dL (0.7-1.2); GLUCOSE 165 mg/dL (70-104); TCO2 19 mmol/L (25-35)
[2018-09-02 09:24] LABS: AGAP 15; CALCIUM 7.8 mg/dL (8.8-10.2)
--- NOTE | 2018-09-02 09:50 | EKG Report ---
Test Performed on : 09/01/2018 2:53:05 PM Test Reason : ER Blood Pressure : / mmHG Vent. Rate : 089 BPM Atrial Rate : 075 BPM P-R Int : 000 ms QRS Dur : 084 ms QT Int : 334 ms P-R-T Axes : 000 012 259 degrees QTc Int : [address] & T wave abnormality, consider lateral ischemia Abnormal ECG When compared with ECG of 31-AUG-2018 16:19, (Unconfirmed) Vent. rate has decreased BY 59 BPM T wave inversion now evident in Lateral leads Confirmed by Flynn Avery MD ([id number]) on 09/04/2018 1:31:37 PM
[2018-09-02] MEDS: LOVENOX SUBQ SCH ×2 (10:22→21:48)
[2018-09-02] MEDS: INVANZ 1 GM/NS 1 GM/50 ML IVPB IV SCH (16:13)
[2018-09-02] MEDS: CARDIZEM PO SCH ×2 (16:13→21:48)
[2018-09-02] MEDS ORDERED: MERREM 1 GM in NS 50 ML IV SCH ×2 (21:00→22:15)
[2018-09-02] MEDS: TYLENOL PO PRN (21:48)
[2018-09-02] MEDS ORDERED: POTASSIUM CHLORIDE IV ONE (22:13)
[2018-09-02] MEDS ORDERED: NS IV ONE (22:13)
[2018-09-03] MEDS ORDERED: NS 50 ML ONE (01:44)
[2018-09-03] MEDS: CARDIZEM PO SCH ×4 (01:52→21:03)
[2018-09-03] MEDS: MERREM 1 GM in NS 50 ML IV SCH ×3 (01:52→18:19)
--- NOTE | 2018-09-03 01:58 | EKG Report ---
Test Performed on : 09/02/2018 11:15:54 PM Test Reason : sweating, sob Blood Pressure : / mmHG Vent. Rate : 111 BPM Atrial Rate : 117 BPM P-R Int : 000 ms QRS Dur : 088 ms QT Int : 314 ms P-R-T Axes : 000 -06 262 degrees QTc Int : 427 ms Atrial fibrillation. with rapid ventricular response. ST & T wave abnormality, consider lateral ischemia Abnormal ECG When compared with ECG of 01-SEP-2018 14:53, (Unconfirmed) No significant change was found Confirmed by Flynn Avery MD ([id number]) on 09/11/2018 4:22:29 AM
[2018-09-03] MEDS ORDERED: ASPIRIN PO STA (06:58)
[2018-09-03] MEDS: PRILOSEC PO SCH (07:09)
--- NOTE | 2018-09-03 08:37 | CONSULTATION ---
DATE OF CONSULTATION: 09/03/2018 CHIEF COMPLAINT: Right ureteral stone, right renal stone, and right renal mass. HISTORY OF PRESENT ILLNESS: Mr. Hall is a 68-year-old with type 2 diabetes and atrial fibrillation, who presented to [facility] on 08/31/2018, complaining of nausea, vomiting, and diarrhea for 3 days that had progressively worsened. The patient was having flank pain, as well as palpitations that he had not addressed. The patient presented to the emergency room and had an elevated heart rate of 150. EKG showed atrial fibrillation with RVR at a rate of 148. The patient was given Cardizem and started on Lovenox. The patient was found to have an elevated white blood cell count at 22k, with a creatinine of 1.0. The patient was given antibiotics, and blood and urine cultures were sent. The patient had admission to the ICU and was started on Cardizem drip, was evaluated by Cardiology, and subsequently his heart rate improved. A CT scan of the Abdomen and Pelvis was performed on 09/01/2018, which showed multiple stones, with an obstructing right ureteral stone measuring 8 x 15 mm leading to severe right hydrouretero- nephrosis, as well as a renal stone, as well as a lower pole renal mass. Urology was consulted today regarding management. The patient has positive blood and urine cultures growing Klebsiella pneumoniae, which is relatively pansensitive. The patient currently states his nausea and vomiting have improved. He states he has minimal back pain. His heart rates have also improved. The patient does have a slightly elevated temperature this morning at 100.4, remains tachycardic at 109 this morning. Patient has had [address] Kaufman. PAST MEDICAL HISTORY: Type 2 diabetes. Atrial fibrillation, Nephrolithiasis. PAST SURGICAL HISTORY: Kidney stone removal by Dr. Kaufman x4. ALLERGIES: No known drug allergies. MEDICATIONS: Glucophage 500 mg p.o. daily. Metoprolol 25 mg p.o. b.i.d. Omeprazole 40 mg p.o. daily. Flomax 0.4 mg. FAMILY HISTORY: Denies family history of malignancy. SOCIAL HISTORY: Denies alcohol, tobacco, or illicit drug use. PHYSICAL EXAMINATION: Vital Signs: Temperature 100.4 degrees, heart rate 109, blood pressure 118/70, oxygen saturation 98% on room air. General: No acute distress. Resting comfortably in bed. Alert and oriented x3. HEENT: Normocephalic, atraumatic. Pupils equal, round, and reactive to light. Mucous membranes moist. Cardiovascular: Evidence of tachycardia, with an irregular rhythm. No evidence of lower extremity edema. Respiratory: Good respiratory effort, without audible wheezing or rales. Abdomen: Soft, nontender, nondistended. No palpable masses. : Uncircumcised phallus. Bilateral testicles without masses or nodularity. No suprapubic tenderness. No CVA tenderness. Rectal: Examination deferred until operating room. Neurologic: Gross motor and sensory intact. Musculoskeletal: Moving all extremities. Skin: No obvious skin lesions or rashes. DIAGNOSTIC DATA: White blood cell count 10.3, hemoglobin 12.9, hematocrit 37.3, platelets 148,000. Sodium 135, potassium 2.9, chloride 102, bicarb 19, BUN 10, creatinine 0.8, glucose 165. Urinalysis from 09/01/2018, 20 to 40 white blood cells, 4+ blood, 2+ bacteria, 3+ glucose. Urine and blood cultures both growing Klebsiella pneumoniae. IMAGING: Obstructing right midureteral stone measuring 8x15mm. Has severe right hydronephrosis to the stone. Has a smaller stone in the right kidney. That is delayed nephrogram on the right side. A 2 cm lower pole renal mass that could be a cyst versus small, homogenous renal mass. ASSESSMENT AND PLAN: Mr. Hall is a 68-year-old with type 2 diabetes, atrial fibrillation, and nephrolithiasis, who presented in consultation regarding right ureteral and right renal stones, as well as a right lower pole renal mass. The patient has had persistent tachycardia, up to 109 and elevated temperature of 100.4 degrees. The patient had a moderate amount of edema and stranding around his right kidney on CT scan. I am concerned the patient is having obstructive uropathy leading to his urinary tract infection with positive blood cultures. I recommended to him to proceed with cystoscopy and right ureteral stent placement to decompress the collecting system. I told him that his stone is quite large and likely would need ureteroscopy versus extracorporeal shockwave lithotripsy for removal. The patient also has a right renal stone. Could consider treatment of his ureteral stone and then doing shockwave on the renal stone. The patient also has a small renal mass that appears to be cystic in origin. We will monitor until he is clinically stabilized. The patient is currently on Lovenox, weight based. We will continue at this time. Likely would have to hold if we performed ureteroscopy and laser removal of stones in the future. The patient discussed the procedure for cystoscopy and right ureteral stent placement. Risks, benefits, and alternatives to procedure were discussed with the patient and the patient elected to proceed. cc: Shankar Garrido MD [facility]
[2018-09-03 08:52] LABS: AGAP 12; BUN 10 mg/dL (8-22); CALCIUM 7.8 mg/dL (8.8-10.2); CHLORIDE 105 mmol/L (98-107); COSMO 281; CREATININE 0.8 mg/dL (0.7-1.2); ESTIMATED GFR > 60; GLUCOSE 170 mg/dL (70-104); POTASSIUM 3.3 mmol/L (3.5-5.1); SODIUM 139 mmol/L (136-145); TCO2 22 mmol/L (25-35)
[2018-09-03] MEDS ORDERED: XYLOCAINE-MPF 2% ONE (08:54)
[2018-09-03] MEDS ORDERED: DIPRIVAN 1% ONE (08:54)
[2018-09-03 09:09] LABS: BASO# 0.01 X1000 (0.0-0.2); BASO% 0.2 % (0.0-0.8); EOS# 0.01 X1000 (0.0-0.7); EOS% 0.2 % (0.0-10.0); HEMATOCRIT 39.8 % (42.0-52.0); HEMOGLOBIN 13.8 g/dL (14.0-18.0); IMM GRAN# 0.02 X1000 (0.0-0.04); IMM GRAN% 0.4 % (0.0-0.5); LYMPH# 0.45 X1000 (1.2-3.4); MCH 32.3 PG (27-31); MCHC 34.7 g/dL (33-37); MCV 93.2 FL (81-99); MONO# 0.56 X1000 (0.11-0.59); MPV 10.7 FL (7.4-10.4); NEUT# 4.57 X1000 (1.4-6.5); NEUT% 81.2 % (42.2-75.2); PLT 148 X1000 (130-400); RBC 4.27 XMIL (4.7-6.1); RDW 12.2 % (11.5-14.5); WBC 5.62 X1000 (4.8-10.8)
[2018-09-03] MEDS ORDERED: ASPIRIN ONE (09:11)
[2018-09-03] MEDS ORDERED: ZOFRAN ONE (09:17)
--- NOTE | 2018-09-03 09:24 | Diag Imaging Result Doc PS360 ---
EXAM: CT HEAD W/O CONTRAST INDICATION: ro cva TECHNIQUE: This exam was performed using automated exposure control, adjustment of mA or kV according to patient size, and/or use of iterative reconstruction technique. COMPARISON: None. FINDINGS: There is minimal patchy low attenuation in the periventricular and subcortical white matter suggesting very mild microangiopathy. There is no definite acute infarct given the limited sensitivity of CT versus MRI. There is no discrete intracranial mass, mass effect, or intracranial hemorrhage. There is mild to moderate paranasal sinus mucosal thickening. Surrounding soft tissues and bony structures are essentially unremarkable, otherwise. IMPRESSION: Very mild chronic appearing white matter changes. No evidence of acute intracranial pathology by CT. Electronically signed by Simone Del Angel 09/03/2018 9:21 AM
[2018-09-03] MEDS ORDERED: FENTANYL ONE ×2 (09:33→09:39)
--- NOTE | 2018-09-03 09:35 | PROGRESS NOTE ---
DATE: 09/03/2018 SUBJECTIVE: No acute events overnight. He denies any chest pain or palpitations. The patient has been evaluated by Urology Department, and the plan is to go to the OR for procedure. OBJECTIVE: Vital Signs: Temperature 100.4 degrees, pulse 109, respiratory rate 20, blood pressure 108/70, oxygen saturation 98 on room air. HEENT: Head normocephalic, no trauma. PERRLA. Neck: Supple. No JVD. No masses. Central trachea. Chest: Clear to auscultation. No wheezing. No rales. Cardiovascular: Irregularly irregular rate and rhythm. Abdomen: Soft, nontender, nondistended. No hepatosplenomegaly. Extremities: No edema, no clubbing, no cyanosis. Neurological examination: The patient is alert and oriented x3. He moves all 4 extremities. LABORATORY: Glucose 149, magnesium 1.9. CK 98. Troponins negative x2. Pending BMP and CBC at this moment. ASSESSMENT AND PLAN: 1. New onset atrial fibrillation with rapid ventricular response. Heart rate is better controlled. It has been mostly in the 90s and 100s, with some episodes in the 90s, 80s and 120s, but he is not having palpitation, shortness of breath or chest pain at this moment. We will continue with the same management. Cardiology Department following this patient. As per the patient, he has been having rhythm problems before, around 20 years ago, but he has not followed this up and he has not been on anticoagulation before. At this moment, we will continue with the same management, but probably we need to switch the Lovenox to either Eliquis or Xarelto if he is not going to get any other procedures, I had a conversation with Dr. Shankar Garrido, who states that probably this patient can get a new procedure either Wednesday or . If that is the case, probably we need to keep this patient on Lovenox twice a day before putting this patient on Eliquis or Xarelto. 2. Klebsiella pneumonia, urinary tract infection and bacteremia. WBC normalized and upon admission was 22.12 and yesterday was 10.3. He had a mild episode of fever today. Blood culture was done on the -. He is going today for surgery, and I will repeat the blood culture again to make sure that the infection is going away. He is getting meropenem, which I will continue for today, but probably he can be switched to levofloxacin, which he can get it intravenously during this hospitalization and then oral at home. 3. Sepsis. Upon admission this patient was tachycardic and he had leukocytosis. Also, he has bacteremia and urinary tract infection. This is getting better. We will continue with same management. 4. Type 2 diabetes. Continue with the same management. Stable. 5. Urinary tract infection in a patient with right ureteral and right renal stones. Also, it looks like he has a renal mass, but probably this is a cyst. Urology Department has been evaluating this patient, and the plan is to proceed with cystoscopy exam and right ureteral stent placement to decompress the collecting system. To remove the stone, probably they will do ureteroscopy versus extracorporeal shockwave lithotripsy for removal. The patient also has a renal stone that could be treated with shock wave. That is the plan for now for this patient's obstructive uropathy. I do believe today only is going to be the cystoscopy exam and the stent placement, and probably removal of one of the stones. We will wait for the surgery to find out. Apparently as per Dr. Garrido, this patient probably will have a new procedure around Wednesday or ; he will let us know. cc: Quinn Kennedy MD
[2018-09-03] MEDS: LOPRESSOR PO SCH ×2 (11:16→21:04)
[2018-09-03] MEDS: FLOMAX PO SCH (11:16)
[2018-09-03] MEDS: HUMALOG SUBQ SCH ×4 (11:21→21:05)
[2018-09-03] MEDS: PYRIDIUM PO PRN ×2 (11:30→21:04)
--- NOTE | 2018-09-03 12:09 | OPERATIVE NOTE ---
PROCEDURE DATE: 09/03/2018 PREOPERATIVE DIAGNOSES: 1. Right hydronephrosis. 2. Right obstructing ureteral stone. 3. Urosepsis. 4. Right renal stone. POSTOPERATIVE DIAGNOSES: 1. Right hydronephrosis. 2. Right obstructing ureteral stone. 3. Urosepsis. 4. Right renal stone. PROCEDURES PERFORMED: 1. Cystoscopy. 2. Right ureteroscopy with lithotripsy. 3. Stone basket extraction. 4. Right retrograde pyelogram. 5. Right 6 x 26 cm ureteral stent placement. SURGEON: Shankar Garrido MD. RELATIONS MGR: None. COMPLICATIONS: None. BLOOD LOSS: 5 mL. SPECIMEN REMOVED: Ureteral stone fragments. DRAINS: 1. A 6 x 26 cm right ureteral stent. 2. A 18-Russian Avila catheter. OPERATIVE FINDINGS: The patient had a normal urethra. No evidence of stricture disease or papillary lesions. On entering to the posterior urethra the patient's prostate was enlarged with trilobar hypertrophy and a moderate-sized median lobe. Once inside the bladder, the entirety of the bladder was inspected with evidence of grade 2 trabeculations, cellules, no evidence any bladder stones or diverticulum. A small amount of sediment was seen throughout the bladder. Both ureteral orifices were visualized, with efflux from the left side. I was able to pass a ZIPwire through the scope, however, was unable to get past the midportion of the ureter. No obvious stones were seen on machine stripper cutter fluoroscopy. Performed ureteroscopy and was able to pass the ureteroscope all the way up into the proximal portion of the mid ureter. A stone was encountered there and was significantly impacted, with tissue overgrowth of the ureteral tissue. I was able to obtain a 365 micron fiber and tried to break the stone into small pieces in order to pass a wire past the stone. Ultimately, I was able to fracture enough of the stone away to get the PTFE wire past the stone up into the collecting system. Due to the tortuosity of the ureter, as well as his enlarged prostate, it was difficult to get direct tip on the stone itself. I was only able to fracture enough to get the wire past it. I was able to extract a few amounts of stone fragments and drop them in the bladder for later retrieval. The patient had evidence of atrial fibrillation and tachycardia. The decision was made to hold off on further stone treatment as we did have a wire past the stone. I performed a right retrograde pyelogram by passing an open-ended ureteral catheter the over the wire, and shot Omnipaque into the collecting system outlining the normal collecting system with severe hydroureteronephrosis. I exchanged the PTFE wire for a ZIPwire, and then placed a 6x26 cm stent. MISTY was performed that showed 30 gram prostate without nodules or asymmetry. No palpable rectal masses. INDICATIONS FOR PROCEDURE: Mr. Hall is a 68-year-old, with a history of nephrolithiasis and type 2 diabetes, who presented to the emergency room on 08/31/2018 complaining of significant pain, nausea, vomiting, and diarrhea. The patient was admitted due to evidence of atrial fibrillation with RVR and was started on Cardizem drip at [facility]. A CT scan was performed on 09/01/2018, which showed a large stone present within the midportion of the right ureter causing severe hydronephrosis proximal to this. The patient also had a smaller stone present in the kidney itself. The patient was transferred to [place] yesterday for evaluation by Urology. The patient has positive blood and urine cultures growing Klebsiella pneumoniae and continues to be in atrial fibrillation. Urology was consulted this morning regarding management of his stone. The patient was evaluated. The recommendation was to proceed with cystoscopy and right ureteral stent placement. Risks, benefits, and alternatives to the procedure were discussed with the patient and the patient elected to proceed. DESCRIPTION OF PROCEDURE: After informed consent was obtained, the patient was brought to the operating room, and placed on the operative room table in the supine position. The patient underwent general anesthesia. The patient received antibiotics on the floor. The patient was prepped and draped in the usual sterile fashion. A preop time-out was performed with all parties in agreement, including anesthesia, surgical, and nursing staff, at which time a 21-Russian cystourethroscope was inserted through the urethra showing normal caliber urethra, no evidence of stricture disease or papillary lesions. On entering the posterior urethra, the patient's prostate was encountered and was not overly long, but did have evidence of obstruction with median lobe present in the base of the bladder that was moderate in size. Both ureteral orifices were visualized, with efflux on the left side. No obvious efflux was seen from the right. There was a significant amount of sediment present in the base of the bladder and throughout. This was irrigated out and drained. The entire bladder was inspected which showed evidence of grade 2 trabeculations as well as several small cellules. No obvious diverticulum, papillary lesions or bladder stones were seen. After complete inspection of the bladder with a 30 and 70-degree lens, open catheter was placed through the scope, flushed of all bubbles and a right retrograde pyelogram was attempted, but could not get the contrast past the mid ureter. Next, a wire was then passed through the scope and the right ureteral orifice was cannulized and a wire was passed easily up into the midportion of the ureter, at which point there was resistance. Attempted to place an open-ended catheter over the wire up into the proximal portion of the mid ureter. However, was not able to get a wire past this. The decision was made to leave the wire in place and to perform right ureteroscopy. I performed ureteroscopy and was able to get up to where the stone was. It was significantly impacted, with tissue overgrowth and inflammation around the stone. I attempted to pass a wire past this which was unable to pass easily. The decision was made to try to fracture the stone in small pieces and pass the wire past this. The patient's anatomy made it difficult to get up to where the stone was, but I was able to fracture enough that I passed the PTFE wire past the stone up into the collecting system. I was able to extract a few of the pieces using a ZeroTip basket and dropped down into the bladder. Due to patient having active atrial fibrillation and urosepsis, the decision was made to abort the procedure at this point and place a ureteral stent. I passed an open-ended catheter over the PTFE wire and shot a retrograde pyelogram to outline the collecting system and ensure that the wire was going into the collecting system itself. At which point, an open-ended catheter was used to exchange the PTFE wire for a ZIPwire. This was back-loaded through the scope and a 6 x 26 cm stent easily passed into the collecting system. Good curl was seen within the collecting system and endoscopically visualized in the bladder. The patient's bladder was drained multiple times and good drainage was seen through and around the stent. The patient's bladder was left full. Then, an 18-Russian Coude catheter was inserted with drainage of light pink irrigant. This was placed to gravity drainage. A digital rectal exam was performed that showed a 30 gram prostate, without nodules or asymmetry, no palpable rectal masses. The patient was awoken and was taken to recovery in stable condition. The patient will be monitored and optimized from his atrial fibrillation and urinary tract infection, and we will discuss treatment options for definitive management of his stone disease. cc: Shankar Garrido MD MTDD
[2018-09-03] MEDS: NORCO-7.5 PO PRN ×2 (13:33→18:56)
[2018-09-03] MEDS: LOVENOX SUBQ SCH ×3 (15:11→22:13)
[2018-09-03] MEDS: PERIDEX MT SCH ×2 (18:55→21:03)
[2018-09-03] MEDS: TYLENOL PO PRN (21:05)
[2018-09-04] MEDS: MERREM 1 GM in NS 50 ML IV SCH ×2 (01:02→11:42)
[2018-09-04] MEDS: CARDIZEM PO SCH ×4 (01:02→21:08)
[2018-09-04] MEDS: NORCO-7.5 PO PRN ×3 (01:02→21:07)
[2018-09-04] MEDS: PRILOSEC PO SCH (06:07)
[2018-09-04] MEDS: HUMALOG SUBQ SCH ×4 (06:37→21:07)
[2018-09-04 06:53] LABS: BASO# 0.03 X1000 (0.0-0.2); BASO% 0.5 % (0.0-0.8); EOS# 0.04 X1000 (0.0-0.7); EOS% 0.6 % (0.0-10.0); HEMATOCRIT 41.2 % (42.0-52.0); HEMOGLOBIN 14.2 g/dL (14.0-18.0); IMM GRAN# 0.09 X1000 (0.0-0.04); IMM GRAN% 1.4 % (0.0-0.5); LYMPH# 0.42 X1000 (1.2-3.4); LYMPH% 6.7 % (20.5-51.1); MCH 32.8 PG (27-31); MCHC 34.5 g/dL (33-37); MCV 95.2 FL (81-99); MONO# 0.55 X1000 (0.11-0.59); MONO% 8.7 % (1.7-9.3); MPV 10.2 FL (7.4-10.4); NEUT# 5.16 X1000 (1.4-6.5); NEUT% 82.1 % (42.2-75.2); PLT 145 X1000 (130-400); RBC 4.33 XMIL (4.7-6.1); RDW 12.4 % (11.5-14.5); WBC 6.29 X1000 (4.8-10.8)
[2018-09-04 07:25] LABS: AGAP 13; BUN 9 mg/dL (8-22); CHLORIDE 100 mmol/L (98-107); COSMO 283; ESTIMATED GFR > 60; GLUCOSE 289 mg/dL (70-104); POTASSIUM 3.2 mmol/L (3.5-5.1); SODIUM 137 mmol/L (136-145); TCO2 24 mmol/L (25-35)
[2018-09-04] MEDS: FLOMAX PO SCH (08:38)
[2018-09-04] MEDS: LOPRESSOR PO SCH ×2 (08:38→21:08)
[2018-09-04] MEDS: PERIDEX MT SCH ×2 (08:38→21:09)
--- NOTE | 2018-09-04 08:41 | PROGRESS NOTE ---
DATE: 09/04/2018 SUBJECTIVE: No acute events overnight. The patient was taken to the operating room yesterday for cystoscopy, right ureteroscopy, laser lithotripsy, and stent placement. The patient had an impacted stone which was difficult to get a stent by and required lasering just to pass a wire through and into the kidney. The patient has had positive blood and urine cultures, growing Klebsiella pneumoniae as well as atrial fibrillation with RVR. The patient's Avila catheter has been placed. He has made good yellow urine. He does have some dysuria around the catheter. Denies any flank pain, nausea, or vomiting. OBJECTIVE: Vital signs: Temperature 98.1 degrees, heart rate 114, blood pressure 112/69, oxygen saturation 96% on room air. General: No acute distress, sitting on side of the bed eating breakfast. Respiratory: Good respiratory effort without audible wheezing or rales. Abdomen: Soft, nontender, nondistended. : No suprapubic tenderness. No CVA tenderness. A urethral catheter in place draining clear yellow urine. LABORATORIES: White blood count 6.3, hemoglobin 14.2, hematocrit 41.1, platelets 145,000. Sodium 137, potassium 3.2, chloride 100, bicarb 24, BUN 9, creatinine 1, glucose 389. ASSESSMENT AND PLAN: Mr. Hall is a 68-year-old with type 2 diabetes, nephrolithiasis, atrial fibrillation, who presented in consultation regarding right ureteral and right renal stones. The patient was taken to the operating room yesterday for cystoscopy, right ureteroscopy, laser lithotripsy and stent placement. The patient had a significantly impacted stone making it difficult to place a stent. Ultimately I was able to get a stent past the obstructing stone. The patient had a low-grade temperature yesterday to 100.4, as well as persistent tachycardia postoperatively, which did improve initially, but has had heart rates in the 110s since then. The patient's heart rate this morning was 114 bpm. The patient denies any pain. Overall, he feels well and is up on the side of his bed eating breakfast. We will plan to remove the catheter this morning. Initially had discussed with the patient proceeding to surgical intervention to remove his stones this week. However, due to his persistent atrial fibrillation and tachycardia, I recommended holding off until this is better controlled and after treating his urinary tract infection with positive blood cultures. Likely, we will plan to perform surgery in several weeks. We will continue on culture specific antibiotics and likely he would need long-term antibiotics for at least 2 weeks. We will continue to monitor. Please call with questions or concerns. cc: Shankar Garrido MD MTDD
[2018-09-04] MEDS: LOVENOX SUBQ SCH ×3 (11:42→23:04)
--- NOTE | 2018-09-04 13:47 | PROGRESS NOTE ---
DATE: 09/04/2018 SUBJECTIVE: The patient is resting comfortably. Has no complaints today. OBJECTIVE: Vital signs: Temperature 98.6 degrees, pulse 101, respirations 20, blood pressure is 120/74, oxygen saturation is 98%. HEENT: Atraumatic, normocephalic. Cardiovascular System: S1, S2. Respiratory system has evidence of good air entry bilaterally. Abdomen is soft, nontender. No masses felt. Extremities: No evidence of edema. Central Nervous System: No obvious focal deficit noted. LABORATORIES: WBC 6.29, hematocrit is 41.1, with a platelet count of 145,000. Sodium is 137, potassium 3.2, chloride 100, bicarbonate 24, BUN 9, creatinine 1.0. ASSESSMENT AND PLAN: 1. New onset atrial fibrillation with rapid ventricular rate. Current heart rate is about 101. Continue rate-controlling agent and the patient is also on anticoagulation, specifically enoxaparin 70 mcg subcutaneously every 12 hours. Cardiology team following. 2. Streptococcal pneumonia, urinary tract infection/bacteremia. Continue current antibiotic regimen. 3. Type 2 diabetes mellitus. Continue blood sugar monitoring, as well as sliding scale insulin. 4. Right ureteral/right renal stones. The patient is status post cystoscopy, right ureteroscopy with lithotripsy, stone basket extraction, as well as a right ureteral stent placement. The patient is being followed by the Urology team. 5. Deep vein thrombosis prophylaxis. The patient is currently on enoxaparin. 6. Gastrointestinal prophylaxis. We will continue proton pump inhibitor. cc: Per Koehler MD
[2018-09-04] MEDS: POTASSIUM CHLORIDE 20 MEQ/SWI 20 MEQ/100 ML IVPB IV SCH ×2 (15:05→16:59)
--- NOTE | 2018-09-04 16:03 | INFECTIOUS DISEASE CONSULT REP ---
DATE: 09/04/2018 CONCLUSION: The patient has a Klebsiella urinary tract infection secondary to right-sided hydronephrosis due to a right ureteral stone. The patient also has an enlarged prostate and thickened bladder wall, which could be due to prostatitis and cystitis respectively. The patient also has an associated Klebsiella bacteremia originating from the kidney. RECOMMENDATIONS: I have discontinued meropenem and placed the patient on Rocephin. He has already had a stent placed in the ureter and he will have further followup with Urology regarding getting rid of the ureteral calculus. PRESENT ILLNESS: The patient had a decrease in his memory and the history was taken partly from him and also from his . He had for 2 weeks diarrhea, vomiting and an irregular heart rate. He was admitted to the hospital. Both his blood and urine are growing Klebsiella and repeat blood cultures are pending. CT scan as mentioned showed a right hydronephrosis due to a right ureteral stone. Also, there was enlargement of the prostate and thickening of the urinary bladder welsh. CBC-WBC 6.29, hgb 14.2, platelets 145K. Both blood and urine cultures are growing klebsiella. PAST MEDICAL HISTORY/REVIEW OF SYSTEMS: Eyes and ears: The patient's vision is okay but he has decreased hearing. Neck: No stiffness. Respiratory: No cough or shortness of breath. Cardiac: No chest pains or palpitations. GI: See present illness. Genitourinary: See present illness. Neurologic: No seizures. No recent loss of motor or sensory function. Integument: No rashes. PREVIOUS HOSPITALIZATIONS AND OPERATIONS: He has had excision of his coccyx. He also has had renal calculi. MEDICAL DISEASES: Positive for diabetes mellitus, renal calculi, atrial fibrillation. INFECTIOUS DISEASE HISTORY: Negative for pneumonia and UTI. FAMILY HISTORY: Positive for diabetes mellitus and cancer. [place]IAL H[place]ORY[place] . He does not have any pets. He does not smoke cigarettes or abuse drugs, but he does occasionally drink beer. ALLERGIES: He has no known drug allergies. MEDICATIONS: Taken at home include Glucophage, metoprolol, omeprazole and Flomax. PHYSICAL EXAMINATION: Vital Signs: Temperature is 98.6 degrees, pulse 101, respirations 20, blood pressure 120/74. Patient is 5 feet 8 inches tall, weighs 152 pounds. General: This is a somewhat ill-appearing, elderly male. He is in no acute distress. Head, eyes, ears, nose, and throat: He can hear my spoken words and see near objects. He does not have any white patches on his tongue. Neck: No pain when he moves his neck. Lungs: Clear to auscultation. Cardiovascular: Irregular heart rate. Abdomen: Abdomen and flanks no suprapubic tenderness. Neurologic: Patient is awake. He can move his extremities. There is no tremor. His sensation is intact to touch. His memory as regarding his medical history was decreased. Integument: No rash noted. Thank you for the consult. cc: Angel Poe MD [facility]
[2018-09-04] MEDS ORDERED: NS 500 ML ONE (17:53)
[2018-09-04] MEDS: NS 100 ML IV SCH ×4 (18:14→23:30)
[2018-09-04] MEDS: ROCEPHIN 2 GM in NS 50 ML IV SCH (19:05)
[2018-09-04] MEDS: PYRIDIUM PO PRN (21:07)
[2018-09-05] MEDS: CARDIZEM PO SCH ×4 (01:47→22:20)
[2018-09-05] MEDS: NS 100 ML IV SCH ×8 (02:44→22:24)
[2018-09-05] MEDS: NORCO-7.5 PO PRN ×3 (02:48→22:19)
[2018-09-05] MEDS: PRILOSEC PO SCH (06:12)
[2018-09-05] MEDS: ROCEPHIN 2 GM in NS 50 ML IV SCH ×3 (06:12→18:40)
[2018-09-05] MEDS: HUMALOG SUBQ SCH ×4 (06:40→22:21)
[2018-09-05 07:54] LABS: BASO# 0.08 X1000 (0.0-0.2); BASO% 1.1 % (0.0-0.8); EOS# 0.12 X1000 (0.0-0.7); EOS% 1.7 % (0.0-10.0); HEMATOCRIT 37.5 % (42.0-52.0); IMM GRAN# 0.07 X1000 (0.0-0.04); LYMPH# 1.45 X1000 (1.2-3.4); MCH 32.5 PG (27-31); MCHC 34.7 g/dL (33-37); MCV 93.8 FL (81-99); MONO# 0.99 X1000 (0.11-0.59); MONO% 13.6 % (1.7-9.3); MPV 10.6 FL (7.4-10.4); NEUT# 4.55 X1000 (1.4-6.5); NEUT% 62.6 % (42.2-75.2); PLT 160 X1000 (130-400); RDW 12.3 % (11.5-14.5); WBC 7.26 X1000 (4.8-10.8)
[2018-09-05 07:56] LABS: AGAP 8; BUN 8 mg/dL (8-22); CALCIUM 7.9 mg/dL (8.8-10.2); CHLORIDE 99 mmol/L (98-107); COSMO 271; CREATININE 0.8 mg/dL (0.7-1.2); ESTIMATED GFR > 60; GLUCOSE 217 mg/dL (70-104); POTASSIUM 2.9 mmol/L (3.5-5.1); SODIUM 133 mmol/L (136-145); TCO2 26 mmol/L (25-35)
--- NOTE | 2018-09-05 08:05 | EKG Report ---
Test Performed on : 09/03/2018 06:39:55 AM Test Reason : afib follow up Blood Pressure : / mmHG Vent. Rate : 120 BPM Atrial Rate : 122 BPM P-R Int : 000 ms QRS Dur : 084 ms QT Int : 324 ms P-R-T Axes : 000 005 -67 degrees QTc Int : 457 ms Atrial fibrillation. with rapid ventricular response. Nonspecific ST and T wave abnormality Abnormal ECG When compared with ECG of 02-SEP-2018 23:15, (Unconfirmed) Nonspecific T wave abnormality has replaced inverted T waves in Lateral leads Confirmed by Jimmy PAT, Cj ([id number]) on 09/05/2018 9:15:24 AM
[2018-09-05 08:53] LABS: BANDS 6 % (0-1); EOS 2 % (1-10); LYMPHS 6 % (21-51); MONO 10 % (1-9); SEGS 74 % (42-75)
[2018-09-05] MEDS: LOPRESSOR PO SCH ×2 (09:18→22:20)
[2018-09-05] MEDS: PERIDEX MT SCH ×2 (09:18→22:18)
[2018-09-05] MEDS: FLOMAX PO SCH (09:18)
[2018-09-05] MEDS: LOVENOX SUBQ SCH ×3 (09:18→22:18)
--- NOTE | 2018-09-05 10:51 | PROGRESS NOTE ---
DATE: 09/05/2018 SUBJECTIVE: No acute events overnight. The patient states he has been voiding without issue. He states he does have some urinary frequency, but feels that he is emptying his bladder to completion. Denies any dysuria, hematuria, straining to urinate, or flank pain. The patient remains afebrile with good p.o. intake. OBJECTIVE: Vital Signs: Temperature 98.5 degrees, heart rate 93, blood pressure 118/73, oxygen saturation 99% on room air. General: No acute distress. Resting comfortably in bed, alert and oriented x3. Respiratory: Good respiratory effort without audible wheezing or rales. Abdomen: Soft, nontender, nondistended. No palpable masses. : No suprapubic tenderness. No CVA tenderness. Urinal at bedside, draining light-orange urine. LABORATORY DATA: White blood cell count 7.3, hemoglobin 13, hematocrit 37.5, platelets 160,000. Sodium 133, potassium 2.9, chloride 99, bicarb 26, BUN 8, creatinine 0.8, glucose 209. ASSESSMENT AND PLAN: Mr. Hall is a 68-year-old with atrial fibrillation, type 2 diabetes, and nephrolithiasis, who presents in consultation regarding hydronephrosis of the right kidney, as well as urinary tract infection with positive blood and urine cultures. The patient underwent cystoscopy over the weekend, and placement of right ureteral stent. The patient has done well since then. His Avila catheter was removed yesterday, and he has voided multiple times. The patient continues to have tachycardia, but this is slowly improving. The patient had hypokalemia this morning. Will replace his potassium. Continue on culture-specific antibiotics. Likely, will need definitive stone management once he is cleared by Medicine due to his new onset of atrial fibrillation. The patient remains afebrile and clinically seems to be improving. Will continue to monitor. Please call with questions or concerns. cc: Shankar Garrido MD [facility]
--- NOTE | 2018-09-05 10:57 | Diag Imaging Result Doc PS360 ---
EXAM: RETROGRADES 2 OR 3 FILMS 09/03/2018 HISTORY: PROXIMAL STONE R URETER TECHNIQUE: 31 images COMMENT: Contrast injected in the right ureteral orifice is only seen to slightly above the sacral promontory. Subsequently a guidewire was placed and ureteroscope was placed with contrast injection through a catheter in the mid ureter. There is an apparent filling defect at the level of the catheter tip. A stent was placed beyond this IMPRESSION: Stone in the mid/proximal ureter on the right. Stent placement by Dr. Garrido Electronically signed by Corbin Shin 09/05/2018 10:55 AM
--- NOTE | 2018-09-05 11:18 | INFECTIOUS DISEASE PROGRESS NO ---
DATE: 09/05/2018 PRESENT ILLNESS: The patient has a Klebsiella urinary tract infection with an associated bacteremia. The infection is caused by a right ureteral stone which caused hydronephrosis. A stent has been placed in the ureter. MEDICATIONS: The patient has been receiving Rocephin intravenously. PHYSICAL EXAMINATION: Vital Signs: Temperature is 98.5 degrees, pulse is 93, respirations 20, blood pressure 118/75. General: This is a somewhat ill-appearing, elderly male. He is in no acute distress. Head, eyes, ears, nose, and throat: He can hear my spoken words and see near objects. There is no drainage coming from his nose or ears. He does not have any white patches on his tongue. Neck: There is no pain when he moves his neck. Lungs: Clear to auscultation. Cardiovascular: Heart rate is rapid and regular. Abdomen: Soft and nontender. Neurologic: Patient is alert. He ambulates without difficulty. He does not have a tremor. LAB AND X-RAY: CBC shows a white count of 7260, hemoglobin 13 and platelet count is 160,000. Creatinine is 0.8, GFR is greater than 60. ASSESSMENT AND PLAN: The patient has a Klebsiella urinary tract infection and bacteremia due to right ureteral stone causing hydronephrosis. The patient's prostate is enlarged and the patient's bladder wall is thickened, and this could mean there is also in addition prostatitis and cystitis respectively. My plan now is to discontinue Rocephin and put the patient on Levaquin 500 mg p.o. daily. I would suggest continuing the Levaquin until all the patient's stones have been taken care of. Some of the side effects of Levaquin including rash, diarrhea, seizures and tendon rupture and abnormal glucose levels have been explained to the patient who agrees with treatment. COMORBIDITIES: He is a diabetic and he unfortunately has had renal calculi in the past. cc: Angel Poe MD
[2018-09-05] MEDS: KLOR-CON PO SCH ×2 (12:02→22:20)
[2018-09-05] MEDS: PYRIDIUM PO PRN ×2 (12:10→22:18)
[2018-09-05] MEDS: LEVAQUIN PO SCH (12:10)
[2018-09-05] MEDS ORDERED: KLOR-CON PO ONE (12:14)
[2018-09-05] MEDS ORDERED: POTASSIUM CHLORIDE 20 MEQ/SWI 20 MEQ/100 ML IVPB IV SCH (12:15)
--- NOTE | 2018-09-05 12:28 | PROGRESS NOTE ---
DATE: 09/05/2018 SUBJECTIVE: The patient is resting comfortable in bed. No new complaints today. OBJECTIVE: Vital Signs: Temperature 98.5 degrees, pulse of 93, respirations 20, blood pressure is 118/75, and oxygen saturation is 99%. HEENT: Atraumatic, normocephalic. Cardiovascular System: S1, S2. Respiratory System: Has evidence of good air entry bilaterally. Abdomen: Soft, nontender. No masses felt. Extremities: No evidence of edema. Central Nervous System: No focal deficit noted. Labs: WBC is 7.26, hematocrit is 37.5, with a platelet count of 160,000. Sodium is 133, potassium is 2.9, chloride is 99, bicarb is 26, BUN is 8, creatinine 0.8. ASSESSMENT AND PLAN: 1. New onset atrial fibrillation with rapid ventricular rate. Continue rate controlling agent as well as anticoagulation. Cardiology team following. 2. Klebsiella pneumoniae urinary tract infection/bacteremia. Continue antibiotics. Infectious disease managing. 3. Type 2 diabetes mellitus. Continue blood sugar monitoring as well as sliding scale insulin. 4. Right ureteral/right renal stone. The patient is status post cystoscopy, right ureteroscopy with lithotripsy, stone basket extraction, as well as right ureteral stent placement. Urology following. 5. Deep vein thrombosis prophylaxis. The patient is on Lovenox. 6. Gastrointestinal prophylaxis. Proton pump inhibitor. cc: Per Koehler MD MTDD
[2018-09-06] MEDS: NS 100 ML IV SCH ×4 (03:05→19:53)
[2018-09-06] MEDS: CARDIZEM PO SCH (04:40)
[2018-09-06] MEDS: PRILOSEC PO SCH (06:25)
[2018-09-06] MEDS: ROCEPHIN 2 GM in NS 50 ML IV SCH (06:25)
[2018-09-06] MEDS: HUMALOG SUBQ SCH ×4 (07:21→22:57)
[2018-09-06] MEDS: PYRIDIUM PO PRN (07:21)
[2018-09-06] MEDS: KLOR-CON PO SCH ×2 (11:34→22:59)
[2018-09-06] MEDS: PERIDEX MT SCH ×2 (11:34→22:58)
[2018-09-06] MEDS: LOVENOX SUBQ SCH ×2 (11:35→22:59)
[2018-09-06] MEDS: FLOMAX PO SCH (11:35)
[2018-09-06] MEDS: LOPRESSOR PO SCH ×2 (11:35→22:59)
[2018-09-06] MEDS: CARDIZEM CD PO SCH (11:49)
[2018-09-06] MEDS: LEVAQUIN PO SCH (11:49)
--- NOTE | 2018-09-06 13:19 | INFECTIOUS DISEASE PROGRESS NO ---
DATE: 09/06/2018 PRESENT ILLNESS: The patient has Klebsiella urinary tract infection with an associated bacteremia. The patient has a right ureteral stone which is causing hydronephrosis. MEDICATIONS: The patient was on Rocephin and Levaquin. I have stopped the Rocephin and I am going with Levaquin. PHYSICAL EXAMINATION: Vital Signs: Temperature is 98.5 degrees pulse 106, respirations 18, blood pressure 123/80. General: This is a fairly healthy-appearing, elderly male. He is in no distress. Head/eyes/ears/nose/throat: He can hear my spoken words and see near objects. He does not have any white coating of his tongue. Neck: Supple. Lungs: Clear to auscultation. Cardiovascular: Heart rate is irregular. Abdomen: Soft and nontender. Neurologic: The patient is alert. He ambulates without difficulty. LAB AND X-RAY: There is no new lab today; no new x-ray either. ASSESSMENT AND PLAN: The patient has Klebsiella urinary tract infection and bacteremia. I plan to continue Levaquin at its current dose for at least 2 weeks, and then continue it until the patient's stone that is blocking the ureter is taken care of. COMORBIDITIES: The patient is diabetic and he also frequently has renal calculi. cc: Angel Poe MD
--- NOTE | 2018-09-06 13:29 | INFECTIOUS DISEASE PROGRESS NO ---
DATE: 09/06/2018 ADDENDUM: The patient will be going home probably tomorrow. I have suggested sending him home on Levaquin 500 mg p.o. daily for 2 weeks. I will give the patient an appointment to come to my office in 2 weeks. We will decide if he needs more Levaquin or we can discontinue it. I plan on continuing Levaquin for as long as the patient has the blocking stone in his ureter and then once it is gone, I think we will be able to stop the Levaquin. cc: Angel Poe MD
--- NOTE | 2018-09-06 14:27 | PROGRESS NOTE ---
DATE: 09/06/2018 SUBJECTIVE: The patient is sitting at the bedside, a family member is also present in the room, he does not have a family doctor, he is feeling better. He had a cystoscopy exam with right ureteroscopy with lithotripsy, stone basket extraction, right retrograde pyelograms and right 6 x 26 cm ureteral stent placement done on 09/03/2018, he seems to be tolerating that procedure well. He seems to be improving, he has been placed on antibiotics and followed by Dr. Poe which is the Infectious Disease doctor. Dr. Garrido from Urology Department did the procedure, I will try to contact him today to see if he will need another procedure during this hospitalization or if this patient can be discharged and follow up as an outpatient. I will switch the diltiazem 30 mg p.o. every 6 hours to diltiazem CD 120 mg p.o. daily, I will continue also with his metoprolol 50 mg p.o. b.i.d. OBJECTIVE: Vital Signs: Temperature 98.5 degrees, pulse 106, respiratory rate 18, blood pressure 123/80, oxygen saturation 98 on room air. HEENT: Head normocephalic. No trauma. PERRLA. Neck: Supple. No JVD. No masses. Central trachea. Chest: Clear to auscultation. No wheezing. No rales. Cardiovascular: Irregularly irregular rate and rhythm. Abdomen: Soft, nontender, nondistended. No hepatosplenomegaly. Extremities: No edema, no clubbing, no cyanosis. Neurological: The patient is alert and oriented x3. No focal deficits. LABORATORY: Glucose 222. ASSESSMENT AND PLAN: 1. New onset atrial fibrillation with rapid ventricular response, rate controlled now. We will continue with metoprolol and diltiazem which I will switch it from 30 mg every 6 hours to 120 daily and we will monitor. He has been placed on anticoagulation and hopefully if he is not going to get any more procedures I will go ahead and switch it to p.o. 2. Klebsiella pneumonia urinary tract infection with bacteremia, Infectious Disease Department on board. Continue with levofloxacin. 3. Sepsis. Upon admission, the patient was tachycardic and with leukocytosis and bacteremia with urinary tract infection, this is getting better. Continue with same management. 4. Type 2 diabetes. Continue with same treatment, stable. 5. Urinary tract infection in a patient with right ureteral and right renal stones, also it looks like he has a renal mass that probably is a cyst, Urology Department evaluated this patient and he is status post cystoscopy exam with right ureteroscopy with lithotripsy, stone basket extraction, right retrograde pyelogram and right 6 x 26 cm ureteral stent placement, the plan is to go ahead and talk to Dr. Garrido to see if he wants to perform any other procedure during this hospitalization. Otherwise he can be seen as an outpatient and continue antibiotics and treatment. cc: Quinn Kennedy MD
--- NOTE | 2018-09-06 19:40 | PROGRESS NOTE ---
DATE: 09/06/2018 SUBJECTIVE: No acute events. The patient has remained afebrile with minimal pain. The patient states that his heart rate has been better. However, he continues to have some tachycardia. The patient has been voiding without issue and tolerating p.o. intake. PHYSICAL EXAMINATION: Vital signs: Temperature 98.6, heart rate 116, blood pressure 112/80, oxygen saturation 97% on room air. General: No acute distress. Resting comfortably in bed, eating dinner. Respiratory: Good respiratory effort without audible wheezing or rales. Abdomen: Soft, nontender, nondistended. Genitourinary: No suprapubic tenderness. No CVA tenderness. PLAN: Mr. Hall is a 68-year-old with new onset of atrial fibrillation, type 2 diabetes, and nephrolithiasis, who presents in consultation regarding hydronephrosis of the right kidney as well as an obstructing ureteral stone. The patient has had positive blood and urine cultures and been treated by Infectious Disease with culture-specific antibiotics. The patient did undergo cystoscopy over the weekend with placement of right ureteral stent and attempted extraction of some of the stones. The patient's Avila catheter was removed, and the patient has been able to void multiple times. The patient continues to have some tachycardia, but this appears to be improving. The patient has been seen by Cardiology and is in discussion of being discharged in the coming days. In talking with the patient today, I recommended treating his stones while he is on antibiotics. We will plan to try to treat his stones next week, tentatively scheduled for 09/15/2018 for right ureteroscopy, laser lithotripsy, and stone basket extraction. The patient currently is on Lovenox for his atrial fibrillation. We will plan to continue with bridging of this until after his procedure and he can be transferred to oral anticoagulation. Discussed this with the patient's hospitalist today, Dr. Bautista. We will continue to monitor while inpatient. Please call with questions or concerns. cc: Shankar Garrido MD MTDD
[2018-09-07] MEDS: PRILOSEC PO SCH (06:12)
[2018-09-07] MEDS: HUMALOG SUBQ SCH ×2 (06:48→11:51)
[2018-09-07 06:52] LABS: HEMOGLOBIN A1C 8.5 % (4.8-6.0)
[2018-09-07 06:54] LABS: BASO# 0.02 X1000 (0.0-0.2); BASO% 0.3 % (0.0-0.8); EOS# 0.06 X1000 (0.0-0.7); HEMATOCRIT 37.4 % (42.0-52.0); HEMOGLOBIN 12.8 g/dL (14.0-18.0); IMM GRAN# 0.06 X1000 (0.0-0.04); LYMPH# 1.89 X1000 (1.2-3.4); LYMPH% 32.2 % (20.5-51.1); MCH 32.4 PG (27-31); MCHC 34.2 g/dL (33-37); MCV 94.7 FL (81-99); MONO# 0.54 X1000 (0.11-0.59); MONO% 9.2 % (1.7-9.3); MPV 10.7 FL (7.4-10.4); NEUT% 56.3 % (42.2-75.2); PLT 253 X1000 (130-400); RBC 3.95 XMIL (4.7-6.1); RDW 12.5 % (11.5-14.5); WBC 5.87 X1000 (4.8-10.8)
[2018-09-07 07:19] LABS: AGAP 11; ALB/GLOB RATIO 0.9; ALKALINE PHOSPHATASE 187 U/L (32-122); BUN 11 mg/dL (8-22); CALCIUM 8.3 mg/dL (8.8-10.2); CHLORIDE 109 mmol/L (98-107); COSMO 294; CREATININE 0.8 mg/dL (0.7-1.2); ESTIMATED GFR > 60; GLUCOSE 238 mg/dL (70-104); GOT 44 U/L (10-34); GPT 68 U/L (10-44); POTASSIUM 3.5 mmol/L (3.5-5.1); SODIUM 144 mmol/L (136-145); TCO2 24 mmol/L (25-35); TOTAL BILIRUBIN 0.21 mg/dL (0.20-1.00); TOTAL PROTEIN 6.3 g/dL (6.3-8.3)
[2018-09-07 07:29] VITALS: BP 108/76
[2018-09-07] MEDS: LOVENOX SUBQ SCH (09:47)
[2018-09-07] MEDS: LOPRESSOR PO SCH (09:48)
[2018-09-07] MEDS: KLOR-CON PO SCH (09:48)
[2018-09-07] MEDS: PERIDEX MT SCH (09:48)
[2018-09-07] MEDS: FLOMAX PO SCH (09:48)
[2018-09-07] MEDS: CARDIZEM CD PO SCH (09:48)
[2018-09-07] MEDS: LEVAQUIN PO SCH (09:48)
[2018-09-07 09:58] LABS: BANDS 8 % (0-1); LYMPHS 18 % (21-51); MONO 10 % (1-9); SEGS 60 % (42-75)
--- NOTE | 2018-09-07 22:37 | DISCHARGE SUMMARY ---
ADMISSION DATE: 08/31/2018 DISCHARGE DATE: 09/07/2018 DIAGNOSES: 1. New onset atrial fibrillation with rapid ventricular response, rate now controlled. 2. Nausea, vomiting, diarrhea, resolved. 3. Klebsiella pneumoniae urinary tract infection with associated bacteremia. 4. Sepsis, resolved. 5. Proximal to mid right ureter 8 x 5 mm stone with right hydronephrosis, status post cystoscopy, right ureteroscopy with lithotripsy, stone basket extraction, right retrograde pyelogram and right ureteral stent placement. 6. Diabetes mellitus type 2. CONSULTS: 1. Dr. Shankar Garrido, urology. 2. Dr. Ezequiel Matthews, cardiology. 3. Dr. Angel Poe, infectious disease. MICROBIOLOGY: 1. Blood cultures x2, 08/31/2018, revealed ESBL negative Klebsiella pneumoniae. 2. Urine culture 08/31/2018 revealed Klebsiella pneumoniae. DIAGNOSTICS: 1. 08/31/2018 chest x-ray revealed lungs normally expanded and clear. Heart size and mediastinal contours are normal. No pneumothorax or pleural effusion. 2. CT of the abdomen and pelvis with IV and p.o. contrast revealed an 8 x 5 mm stone in the proximal mid right ureter with associated substantial right hydronephrosis, heterogeneous enhancement of the lower right kidney which suggests nephritis or pyelonephritis with a 7 mm nonobstructing stone in the right kidney, 2 x 1.5 cm exophytic solid-appearing lesion at the posterior lower right kidney, relatively homogeneous, but malignancy cannot be excluded. Enlarged prostate. Thickened urinary bladder welsh. Lumbar spine degenerative changes noted most prominent at L4-5 where there is apparent spinal stenosis. 3. CT of the head revealed very mild chronic appearing white matter changes. No evidence of acute intracranial pathology by CT. HOSPITAL COURSE: Mr. Hall presented to the emergency room with 3 days of nausea, vomiting, and diarrhea. He was initially found to be in atrial fibrillation with rapid ventricular response. He was admitted to ICU and placed on a Cardizem drip. He was evaluated by Cardiology. He was initially placed on Lovenox 1 mg/kg q.12 hours. Echocardiogram was performed which revealed an ejection fraction of 65%. He remains in atrial fibrillation with rate controlled now in the 90s to 100 range on Cardizem 120 p.o. daily as well as Lopressor 50 mg p.o. b.i.d., which will be continued. He was septic on admission. He was found to have Klebsiella pneumoniae UTI with associated bacteremia. He received antibiotic coverage of ertapenem initially once sensitivities returned. Dr. Poe of Infectious Disease consulted. Merrem was discontinued and he was placed on Rocephin. Repeat blood cultures on 09/02/2018 and 09/03/2018 revealed no growth after 48 hours. In regard to his diabetes, he was initially placed on pattern blood glucose with sliding scale insulin and he will be discharged home on his Glucophage dose of 500 mg p.o. daily. In regards to right renal stone, right ureteral stone and right renal mass, Dr. Garrido did evaluate the patient. He then underwent cystoscopy with right ureteroscopy and lithotripsy, stone basket extraction, right retrograde pyelogram, and a right 6 x 26 cm ureteral stent was placed. The patient has tolerated this well. He has been tentatively scheduled to have a right ureteroscopy, laser lithotripsy and stone basket extraction on 09/15/[address] Garrido. He will be bridged with Lovenox 70 mg subcutaneous q.12 hours with his last dose being the night time dose on 09/14/2018. This has been discussed with the patient per Dr. Bautista. It will also be given to the patient in writing. He is to start Eliquis after surgery when Urology feels it is safe for him to do so. They have been given the prescription for Eliquis 5 mg p.o. q.12 hours. This was discussed with the patient and his per Dr. Bautista. They will also be given these instructions in writing. DISCHARGE MEDICATIONS: 1. Eliquis 5 mg p.o. q.12 hours to start when okayed by his urologist postop. 2. Cardizem CD 120 mg p.o. daily. 3. Lovenox 70 mg subcutaneous q.12 hours with last dose being 09/14/2018 p.m. dose. 4. Levaquin 500 mg p.o. daily for 14 days. 5. Glucophage 500 mg p.o. daily. 6. Metoprolol tartrate 25 mg p.o. b.i.d. 7. Omeprazole 40 mg p.o. daily. 8. Flomax 0.4 mg p.o. daily. 9. Ultram 50 mg p.o. q.8 hours p.r.n. FOLLOWUP: 1. Dr. Shankar Garrido. This will be arranged by his office with surgery tentatively planned 09/15/2018. 2. Dr. Ezequiel Matthews, 10/05/2018 at 10:15 a.m. 3. Angel Poe. The office will arrange an appointment in 2 weeks next. DISCHARGE PHYSICAL EXAMINATION: Vital Signs: Blood pressure is 108/76 with a heart rate of 96, respirations are 20, temperature is 98 degrees oral with room air saturations 98 to 100. Cardiovascular: Irregularly irregular rate and rhythm. S1 and S2 appreciated. He has no lower extremity edema. Calves are nontender bilateral with peripheral pulses palpable x4 extremities. Pulmonary: Breath sounds are clear with no increased work of breathing noted. Chest rise and fall symmetrically with respiration. Chest wall is nontender to palpation. Gastrointestinal: Abdomen is soft, nontender, nondistended with bowel sounds in all 4 quadrants. Neurologic: He is alert and oriented x3. Skin: Warm and dry. INSTRUCTIONS: The patient has been instructed to call to be seen sooner or return to the emergency room for any syncope, dizziness, chest pain, palpitations, any night sweats, temperature greater than 101, any change in urination patterns, any gross hematuria or for any questions or concerns that he may have. He is being discharged home in stable condition with family members. TIME SPENT: This is a greater than 30 minute discharge. Dictated by SILVINA Howard for Quinn Kennedy MD cc: SILVINA Howard MD
== END 2018-09-07 12:27 | disposition home or self-care (01) | DRG 854 ==
LOC: P.ED 16:10 → P.EDIPHOLD 23:12 → SUATTDRO 23:12 → P.ICU 09-01 12:23 → P.MEDSURG 09-02 12:41 → 4N 09-03 00:51
PROVIDERS: ATTEND Internal Medicine
CPT/HCPCS: 70450; 71010; 71045; 74177; 74420; 80048; 80053; 81001; 82550; 82948; 83036; 83605; 83735; 84443; 84484; 85025; 85610; 85730; 87040; 87077; 87088; 87186; 93005; 93010; 93306; 94761; 94799; 96365; 96366; 96367; 96368; 96372; 96375; 96376; 97161; 99285; 99291; A9270; C8929; J0696; J1335; J1650; J1815; J2185; J2405; J3010; J3370; J3480; J7030; J7040; Q9957; Q9966; Q9967; XXXXX